=== PATIENT | male | born 1965 | race Caucasian/White ===

== ENCOUNTER 2017-06-26 18:02 | Emergency (ER) | payer MEDICAID ==
[~2017-06-26] VITALS: Ht 165.1 cm; Wt 95.3 kg
[~2017-06-26 18:02] MED LIST: OMEP20TC12 PO; SUCR1TAB35 PO
[2017-06-26 18:22] VITALS: BP 183/108
[2017-06-26 18:54] LABS: BASOPHILS # (AUTO) 0.4 K/uL (0.00-0.22); EOSINOPHILS # (AUTO) 0.2 K/uL (0-0.4); EOSINOPHILS % (AUTO) 1.4 % (0.0-4.0); LYMPHOCYTES # (AUTO) 2.8 K/uL (2.0-11.5)
[2017-06-26 18:57] LABS: ANION GAP 19.7 (8-16); CARBON DIOXIDE 20.3 mmol/L (21-32); CREATININE 1.1 mg/dL (0.7-1.3)
[2017-06-26 18:59] LABS: BASOPHILS % (AUTO) 3.5 % (0.0-2.0); HEMATOCRIT 38.6 % (36-52); HEMOGLOBIN 12.8 g/dL (12.0-18.0); LYMPHOCYTES % (AUTO) 22.7 % (20.5-51.1); MEAN CORPUSCULAR HEMOGLOBIN 32 pg (27-31); MEAN CORPUSCULAR HGB CONC 33 g/dL (33-37); MEAN CORPUSCULAR VOLUME 96 fL (80-94); MONOCYTES # (AUTO) 0.8 K/uL (0.8-1.0); MONOCYTES % (AUTO) 6.4 % (1.7-9.3); PLATELET COUNT (AUTO) 620 K/uL (140-450); RED BLOOD CELL COUNT(AUTO) 4.01 MIL/uL (4.20-6.10); RED CELL DISTRIBUTION WIDTH 13.1 % (11.6-13.7); WHITE BLOOD COUNT (AUTO) 12.2 K/uL (4.8-10.8)
[2017-06-26 19:00] LABS: PROTHROMBIN TIME 11.5 secs (10.8-13.4)
[2017-06-26 19:03] LABS: ALBUMIN 3.5 g/dL (3.4-5.0); TOTAL BILIRUBIN 0.2 mg/dL (0.0-1.0)
--- NOTE | 2017-06-26 19:20 | NUR ---
52 Y/O M W/C/O N/V/D SINCE THIS AM. PT STATES HE WAS DISCHARGED FROM [facility] YESTERDAY FOR SAME S/SX. PT STATES HE VOMITED BLOOD THIS AM X1. HX SEIZURE DISORER, HTN, CVA W/NO DEFICIT.PT ON MONITOR, BP 182/83, NORMAL SINUS RHYTHM,DENIES SOB OR CHEST PAIN. ER MD MADE AWARE.
[2017-06-26 19:30] LABS: APPEARANCE,URINE CLEAR (CLEAR); BILIRUBIN,URINE NEGATIVE (NEGATIVE); BLOOD, URINE TRACE-L (NEGATIVE); COLOR,URINE YELLOW (YELLOW); LEUKOCYTE ESTERASE ,URINE NEGATIVE (NEGATIVE); NITRITE, URINE NEGATIVE (NEGATIVE); UGLUCOSE NEGATIVE (NEGATIVE)
[2017-06-26 19:43] LABS: RBC,URINE 0-5 (RARE) /HPF (0-5)
[2017-06-26 19:44] LABS: WBC,URINE 0-5 (RARE) /HPF (0-5)
--- NOTE | 2017-06-26 19:52 | NUR ---
Dr. Arnett evaluating patient at bedside.
[2017-06-26] MEDS ORDERED: DICYCLOMINE 20 MG/2 ML VIAL IM ONE (20:00)
[2017-06-26] MEDS ORDERED: ONDANSETRON 4 MG ODT PO ONE (20:00)
--- NOTE | 2017-06-26 20:55 | NUR ---
PT RETURN FROM CT
[2017-06-26] MEDS ORDERED: HYDROcodone/APAP 5/325 MG 1 TAB TAB PO ONE (21:30)
--- NOTE | 2017-06-26 21:30 | NUR ---
PT RESTING IN BED, AWATING FOR RESULTS. NO S/S OF DISTRESS NOTED AT THE MOMENT.
[2017-06-26] MEDS ORDERED: POTASSIUM CHLORIDE 10 MEQ TABER PO ONE (21:35)
[2017-06-26 22:16] VITALS: BP 117/76
--- NOTE | 2017-06-26 22:16 | NUR ---
Patient discharged with v/s stable. Written and verbal after care instructions given and explained. Patient alert, oriented and verbalized understanding of instructions. Ambulatory with steady gait. All questions addressed prior to discharge. ID band removed. Patient advised to follow up with PMD TOMORROW. Rx of BENTYL given. Patient educated on indication of medication including possible reaction and side effects. Opportunity to ask questions provided and answered.
== END 2017-06-26 22:16 | disposition home or self-care (01) ==
LOC: MED 18:02
DX: R10.32 Left lower quadrant pain (principal); R11.2 Nausea with vomiting, unspecified; R19.7 Diarrhea, unspecified; K21.9 Gastro-esophageal reflux disease without esophagitis; I10 Essential (primary) hypertension; F17.210 Nicotine dependence, cigarettes, uncomplicated; Z86.73 Personal history of transient ischemic attack (TIA), and cerebral infarction without residual deficits; Z90.49 Acquired absence of other specified parts of digestive tract; Z79.899 Other long term (current) drug therapy; Z88.8 Allergy status to other drugs, medicaments and biological substances
CPT/HCPCS: 36415; 74176; 80053; 81001; 82150; 83690; 85025; 85610; 85730; 96372; 99285; J0500; S0119

== ENCOUNTER 2017-11-14 18:06 | Inpatient (IN) | payer OTHER, MEDICAID ==
[~2017-11-14] VITALS: Ht 167.6 cm; Wt 99.3 kg
[~2017-11-14 18:06] MED LIST changes: +ASPI81CT89 PO; +DIVA500T1 PO; +GABA400C PO; +LISI40TA4 PO; +MECL-272 PO; +METO50TE2 PO; +ORE25 PO; +SERT100T PO; +[UNRECOGNIZED DRUG - CODE] NS; +[UNRECOGNIZED DRUG - CODE] PO
--- NOTE | 2017-11-14 18:21 | NUR ---
PT TAKEN TO BED 12.
[2017-11-14 18:25] VITALS: BP 158/78
[2017-11-14] MEDS ORDERED: ALBUTEROL 0.083% 2.5 MG/3 ML NEBU INH ONE ×2 (18:25→19:35)
[2017-11-14] MEDS ORDERED: IPRATROPIUM 0.02% 0.5 MG/2.5 ML NEBU INH ONE (18:25)
--- NOTE | 2017-11-14 18:45 | NUR ---
PT PRESENTS TO ER WITH INTERMITTENT GRADUAL ONSET SOB X 3 DAYS WORSENING THIS AM. PT REPORTS INCREASED SOB WITH MINIMAL EXERTION. ALSO, C/O CRUSHING RT ANTERIOR CHEST PAIN, NON RADIATING. DENIES ANY NUMBNESS/TINGLING. NO FEVERS/CHILLS. SKIN W/D/I. PT TACHYPNIC WITH LABORED BREATHING, NASAL FLARING NOTED. LS-WHEEZES YANETH, ON O2-2L VIA NC @96%. RT CALLED AND ER MD EXAM AT BEDSIDE.
--- NOTE | 2017-11-14 19:00 | NUR ---
RECEIVED REPORT FROM SRINIVASA STONER. TRANSFER OF CARE AT THIS TIME.
[2017-11-14] MEDS ORDERED: KETOROLAC 30 MG/ML VIAL IVP ONE (19:35)
[2017-11-14] MEDS ORDERED: ALBUTEROL SULFATE/IPRATROPIU 3 ML SOL IH ONE (19:35)
[2017-11-14 19:54] LABS: BASOPHILS # (AUTO) 0.2 K/uL (0.00-0.22); BASOPHILS % (AUTO) 2.5 % (0.0-2.0); EOSINOPHILS # (AUTO) 0.4 K/uL (0-0.4); HEMATOCRIT 38.8 % (36-52); HEMOGLOBIN 13.1 g/dL (12.0-18.0); LYMPHOCYTES # (AUTO) 1.8 K/uL (2.0-11.5); MEAN CORPUSCULAR HEMOGLOBIN 30 pg (27-31); MEAN CORPUSCULAR HGB CONC 34 g/dL (33-37); MEAN CORPUSCULAR VOLUME 90 fL (80-94); MONOCYTES # (AUTO) 0.9 K/uL (0.8-1.0); MONOCYTES % (AUTO) 13.7 % (1.7-9.3); NEUTROPHILS # (AUTO) 3.1 K/uL (1.8-7.7); NEUTROPHILS % (AUTO) 48.8 % (42.2-75.2); PLATELET COUNT (AUTO) 205 K/uL (140-450); RED BLOOD CELL COUNT(AUTO) 4.32 MIL/uL (4.20-6.10); RED CELL DISTRIBUTION WIDTH 14.1 % (11.6-13.7); WHITE BLOOD COUNT (AUTO) 6.4 K/uL (4.8-10.8)
[2017-11-14 20:10] LABS: ANION GAP 15.2 (8-16); POTASSIUM 4.2 mmol/L (3.5-5.1); TOTAL BILIRUBIN 0.2 mg/dL (0.0-1.0)
[2017-11-14] MEDS ORDERED: KEP500 PO (20:23)
[2017-11-14] MEDS ORDERED: methylPREDNISolone SS 125 MG/2 ML VIAL IVP ONE (20:35)
--- NOTE | 2017-11-14 21:26 | NUR ---
Patient will be admitted to care of DR. MESSINA. Admited to TELE. Will go to room 106A. Belongings list completed. Report to ILEANA STONER.
--- NOTE | 2017-11-14 21:35 | NUR ---
RECEIVED REPORT FROM DAY SHIFT NURSE. PT IS A/OX4, WITH RESIDUAL LEFT SIDED WEAKNESS FROM HX OF CVA. ON 2L O2 VIA NASAL CANNULA. 22G IV TO RIGHT FOREARM, SALINE LOCKED. PT AMBULATES WITH CANE. UPDATED BOARD. MRSA SWAB OBTAINED AND SENT TO LAB. VITAL SIGNS WITHIN NORMAL LIMITS. PT IN STABLE CONDITION, NO SIGNS OF DISTRESS NOTED. BED IN LOWEST POSITION, CALL LIGHT WITHIN REACH. WILL CONTINUE TO MONITOR.
[2017-11-14 21:45] VITALS: BP 135/88
--- NOTE | 2017-11-14 22:13 | NUR ---
PAGED DR Ilia MESSINA FOR ORDERS FOR PT. WILL AWAIT CALL.
--- NOTE | 2017-11-14 22:46 | NUR ---
PAGED DR Luis MESSINA AGAIN.
--- NOTE | 2017-11-14 23:20 | NUR ---
TRIED TO PAGE DR MESSINA AGAIN. EXPLAINED TO MAINFRAME SYSTEMS PROGRAMMER THAT THIS IS THE THIRD TIME PAGING DR Ilia MESSINA, AND HE STILL HAS NOT CALLED BACK, SO MAINFRAME SYSTEMS PROGRAMMER GOT A HOLD OF DR Ilia MESSINA AND PUT HIM ON THE LINE. TOLD THAT THERE ARE NO ORDERS FOR PT AND PT IS COMPLAINING OF PAIN. DR MESSINA SAID HE WOULD PT IN ORDERS NOW.
[2017-11-14] MEDS ORDERED: ACETAMINOPHEN 325 MG TAB PO PRN (23:50)
[2017-11-15] VITALS: BP 152/94
[2017-11-15] MEDS: HYDROcodone/APAP 5/325 MG 1 TAB TAB PO PRN ×3 (00:11→23:39)
--- NOTE | 2017-11-15 02:25 | NUR ---
PT HR ON MONITOR 44, PT SLEEPING, BUT AROUSABLE. VITAL SIGNS: BP 148/94, HR 58, SPO2 92% ON ROOM AIR, RR 20.
[2017-11-15 04:00] VITALS: BP 149/80
--- NOTE | 2017-11-15 04:00 | NUR ---
SLIGHTLY HYPERTENSIVE (149/80), OTHERWISE VITAL SIGNS WITHIN NORMAL LIMITS. PT IN STABLE CONDITION, NO SIGNS OF DISTRESS NOTED. BED IN LOWEST POSITION, CALL LIGHT WITHIN REACH. WILL CONTINUE TO MONITOR.
--- NOTE | 2017-11-15 05:40 | NUR ---
ADMINISTERED PAIN MEDICATION NORCO FOR PT COMPLAINT OF CHEST/RIBS PAIN, PT TOLERATED WELL. PT IN STABLE CONDITION, NO SIGNS OF DISTRESS NOTED. BED IN LOWEST POSITION, CALL LIGHT WITHIN REACH. WILL CONTINUE TO MONITOR.
--- NOTE | 2017-11-15 07:22 | NUR ---
ENDORSED PT TO DAY SHIFT RN IN STABLE CONDITION FOR CONTINUITY OF CARE.
--- NOTE | 2017-11-15 07:23 | NUR ---
RECEIVED REPORT FROM MEDICAL CLAIMS REPRESENTATIVE NURSE ILEANA AT BEDSIDE FOR CONTINUITY OF CARE. PT IS AWAKE AND AAOX4. INTRODUCED SELF AND UPDATED BOARD. PT SITTING UP IN BED WATCHING TV AND EATING BREAKFAST. COMPLAINED OF PAIN ON RIGHT SIDE AND STATED THAT IT HURTS FROM COUGH. O2 SAT 94% ON O2 NC 2L. LUNG SOUNDS CLEAR. SKIN WARM AND DRY. NO SIGNS OF DISTRESS. BED IN LOW POSITION, WHEELS LOCKED, CALL LIGHT WITHIN REACH. WILL CONTINUE TO MONITOR.
[2017-11-15 08:00] VITALS: BP 127/90
[2017-11-15] MEDS: SUCRALFATE 1 GM TAB PO SCH ×4 (08:34→20:40)
[2017-11-15] MEDS: HYDROCHLOROTHIAZIDE 25 MG TAB PO SCH (08:34)
[2017-11-15] MEDS: MECLIZINE 25 MG TAB PO SCH ×3 (08:35→17:09)
[2017-11-15] MEDS: ASPIRIN 81 MG TAB.CHEW PO SCH (08:35)
[2017-11-15] MEDS ORDERED: GABAPENTIN 100 MG CAP PO SCH (09:00)
[2017-11-15] MEDS ORDERED: DIVALPROEX 500 MG TABER PO SCH (09:00)
--- NOTE | 2017-11-15 09:01 | NUR ---
PATIENT HAS BEEN SCREENED AND CATEGORIZED MODERATE NUTRITION RISK. PATIENT WILL BE SEEN WITHIN 3-5 DAYS OF ADMISSION. 11/16/17-11/18/[address]
[2017-11-15] MEDS: DEXT 5% /NACL 0.9% 1,000 ML IV SCH ×3 (09:45→17:09)
[2017-11-15] MEDS ORDERED: ALUMINUM HYD/MAG/SIMETHICONE 30 ML UDC PO PRN (10:05)
[2017-11-15] MEDS ORDERED: ONDANSETRON 4 MG/2 ML VIAL IVP PRN (10:05)
[2017-11-15] MEDS ORDERED: HYDROcodone/APAP 5/325 MG 1 TAB TAB PO PRN (10:05)
[2017-11-15] MEDS ORDERED: LORazepam 1 MG TAB PO PRN (10:05)
[2017-11-15] MEDS ORDERED: ACETAMINOPHEN 325 MG TAB PO PRN (10:05)
[2017-11-15] MEDS ORDERED: MORPHINE SULFATE 2 MG/ML SYR IVP PRN (10:05)
[2017-11-15] MEDS ORDERED: ZOLPIDEM 5 MG TAB PO PRN (10:05)
[2017-11-15 10:34] LABS: CREATINE KINASE MB 2.2 ng/mL (0-3.6)
--- NOTE | 2017-11-15 10:46 | NUR ---
PER CM PT TAKES PSYCHOTROPIC MEDS HE HAS NOT BEEN TAKING, BUT PT DOES NOT KNOW THE NAME, PT'S NURSE AT [facility] CALLED [phone], T[facility] IS OUT OF THE OFFICE IN THE FIELD SO SHE GAVE ME NUMBER FOR HER SWEAT BAND SEPARATOR K[facility] [phone] FOR LIST OF PT'S MEDICATION, LEFT MESSAGE ON VOICE MAIL FOR KIA TO CALL US BACK WITH MEDICATION LIST. WILL FOLLOW UP.
[2017-11-15] MEDS: MORPHINE SULFATE 2 MG/ML SYR IVP PRN ×3 (11:15→19:37)
--- NOTE | 2017-11-15 11:15 | NUR ---
PT COMPLAINED OF CHEST PAIN 06/17 AND STATED [facility] IS NOT WORKING. ADMINISTERED MORPHINE IVP FOR PAIN. PT TOLERATED WELL. LYING IN BED GETTING ECHO DONE WITH TECH. NO COMPLAINTS AT THIS TIME. WILL CONTINUE TO MONITOR.
[2017-11-15 12:00] VITALS: BP 121/92
--- NOTE | 2017-11-15 12:14 | NUR ---
SPOKE WITH [facility] [phone], HOME MEDICATION VERIFIED, PER KIA, PT TAKES FOLLOWING MEDS AT HOME: KEPPRA 750MG PO BID DEPAKOTE ER 500MG PO BID ASPIRIN 81MG PO QD LASIX 40MG PO QD LISINOPRIL 20MG PO QD PANTOPRAZOL 40MG PO QD INDERAL 20MG PO TID FLOMAX 0.4MG PO CARAFATE 1MG PO QID THORAZINE 25MG PO QAM, 150MG PO HS NEURONTIN 300MG PO BID, 900MG PO HS ZOLOFT 150MG PO QD WILL NOTIFY Ilia ADAMSON
[2017-11-15] MEDS: GABAPENTIN 300 MG CAP PO SCH (14:54)
--- NOTE | 2017-11-15 15:00 | NUR ---
CHECKED ON PT IN ROOM. PT GOT UP TO USE RESTROOM AND BRUSH TEETH. GAVE DENTURE CUP FOR UPPER AND LOWER DENTURES. NO OTHERS COMPLAINTS AT THIS TIME. CALL LIGHT WITHIN REACH. WILL CONTINUE TO MONITOR.
[2017-11-15 16:00] VITALS: BP 145/82
--- NOTE | 2017-11-15 17:15 | NUR ---
PT STATED HE WAS FEELING ANXIOUS AND "A LITTLE SHAKES." PT REQUESTED ATIVAN FOR ANXIETY. ADMINISTERED ATIVAN PO. PT TOLERATED WELL. NO SIGNS OF DISTRESS. CALL LIGHT WITHIN REACH. WILL CONTINUE TO MONITOR.
[2017-11-15] MEDS ORDERED: ALBUTEROL SULFATE/IPRATROPIU 3 ML SOL IH PRN (18:20)
[2017-11-15] MEDS: LEVOFLOXACIN 500 MG/D5W PREMIX 100 ML IV SCH (18:30)
[2017-11-15] MEDS: ALBUTEROL SULFATE/IPRATROPIU 3 ML SOL IH SCH (18:49)
--- NOTE | 2017-11-15 19:13 | NUR ---
ENDORSED PT TO TRAVEL RN OR NURSE STAR AT BEDSIDE FOR CONTINUITY OF CARE. PT IN STABLE CONDITION.
--- NOTE | 2017-11-15 19:14 | NUR ---
RECEIVED HANDOFF REPORT FROM AM RN. PATIENT A&OX4. PATIENT STATES 9/10 PAIN. KALLI MEDICATE ORDERED. IV SITE PATENT AND INTACT. NO SIGNS OR SYMPTOMS OF ACUTE DISTRESS NOTED. SAFETY MEASURES ENSURED. CALL LIGHT WITHIN REACH. WILL CONTINUE TO MONITOR.
[2017-11-15 20:00] VITALS: BP 126/77
[2017-11-15] MEDS: DIVALPROEX 500 MG TABEC PO SCH (20:37)
[2017-11-15] MEDS: levETIRAcetam 500 MG TAB PO SCH (20:40)
[2017-11-15] MEDS ORDERED: GABAPENTIN 300 MG CAP PO SCH (21:00)
[2017-11-15] MEDS ORDERED: chlorproMAZINE 25 MG TAB PO SCH (21:00)
--- NOTE | 2017-11-15 23:40 | NUR ---
PATIENT STATES SOB. O2 IS 95 ON 2L O2 NC. RT NOTIFIED. NO SIGNS OR SYMPTOMS OF ACUTE DISTRESS NOTED. SAFETY MEASURES ENSURED. CALL LIGHT WITHIN REACH. WILL CONTINUE TO MONITOR.
[2017-11-16] VITALS: BP 130/86
--- NOTE | 2017-11-16 00:01 | NUR ---
RT IN TO SEE PATIENT.
[2017-11-16] MEDS: ALBUTEROL SULFATE/IPRATROPIU 3 ML SOL IH SCH ×4 (00:09→19:00)
[2017-11-16] MEDS: MORPHINE SULFATE 2 MG/ML SYR IVP PRN ×3 (01:33→12:22)
--- NOTE | 2017-11-16 02:45 | NUR ---
PATIENT RESTING IN BED. NO SIGNS OR SYMPTOMS OF DISTRESS NOTED. SAFETY MEASURES ENSURED. CALL LIGHT WITHIN REACH. WILL CONTINUE TO MONITOR.
[2017-11-16] MEDS: DEXT 5% /NACL 0.9% 1,000 ML IV SCH ×2 (02:47→15:11)
[2017-11-16 04:00] VITALS: BP 127/82
[2017-11-16] MEDS ORDERED: PANTOPRAZOLE 40 MG TABEC PO SCH (06:30)
[2017-11-16 06:40] LABS: BASOPHILS # (AUTO) 0.1 K/uL (0.00-0.22); BASOPHILS % (AUTO) 1.6 % (0.0-2.0); EOSINOPHILS # (AUTO) 0.1 K/uL (0-0.4); HEMATOCRIT 36.8 % (36-52); HEMOGLOBIN 12.4 g/dL (12.0-18.0); LYMPHOCYTES # (AUTO) 3.1 K/uL (2.0-11.5); LYMPHOCYTES % (AUTO) 36.7 % (20.5-51.1); MEAN CORPUSCULAR HEMOGLOBIN 30 pg (27-31); MEAN CORPUSCULAR HGB CONC 34 g/dL (33-37); MEAN CORPUSCULAR VOLUME 90 fL (80-94); MONOCYTES # (AUTO) 0.8 K/uL (0.8-1.0); MONOCYTES % (AUTO) 9.2 % (1.7-9.3); NEUTROPHILS # (AUTO) 4.4 K/uL (1.8-7.7); NEUTROPHILS % (AUTO) 51.5 % (42.2-75.2); PLATELET COUNT (AUTO) 237 K/uL (140-450); RED BLOOD CELL COUNT(AUTO) 4.09 MIL/uL (4.20-6.10); RED CELL DISTRIBUTION WIDTH 14.8 % (11.6-13.7); WHITE BLOOD COUNT (AUTO) 8.5 K/uL (4.8-10.8)
[2017-11-16 07:05] LABS: ALBUMIN 2.5 g/dL (3.4-5.0); ANION GAP 10.3 (8-16); CARBON DIOXIDE 28.8 mmol/L (21-32); CREATININE 1.1 mg/dL (0.7-1.3); MAGNESIUM 1.7 mg/dL (1.8-2.4); PHOSPHORUS 3.6 mg/dL (2.5-4.9); POTASSIUM 4.1 mmol/L (3.5-5.1); TOTAL BILIRUBIN 0.2 mg/dL (0.0-1.0)
--- NOTE | 2017-11-16 07:22 | NUR ---
ENDORSED PLAN OF CARE TO AM RN. PATIENT IN STABLE CONDITION
--- NOTE | 2017-11-16 07:23 | NUR ---
RECEIVED REPORT FROM PLASTER WHITTLER NURSE. PATIENT LYING IN BED SLEEPING, AROUSABLE BY VOICE. NO DISTRESS NOTED. DENIES ANY PAIN AT THIS TIME. RESPIRATIONS EVEN, UNLABORED, ON O2 2L/MIN VIA NC. AAOX4, CALM, COOPERATIVE, APPROPRIATE AFFECT, SKIN COLOR APPROPRIATE TO ETHNICITY, WARM TO TOUCH. SKIN IS INTACT. IV SITE INTACT, PATENT AND INFUSING IVF PER ORDERS. LUNGS WHEEZING THROUGHOUT ALL LOBES. ABDOMEN SOFT, NON-DISTENDED. REVIEWED PLAN OF CARE WITH PATIENT. PATIENT VERBALIZED UNDERSTANDING. SAFETY MEASURES IN PLACE, CALL LIGHT WITHIN REACH. WILL CONTINUE TO MONITOR.
[2017-11-16 08:00] VITALS: BP 134/90
[2017-11-16] MEDS: SUCRALFATE 1 GM TAB PO SCH ×3 (08:50→16:06)
[2017-11-16] MEDS: ASPIRIN 81 MG TAB.CHEW PO SCH (08:50)
[2017-11-16] MEDS: DIVALPROEX 500 MG TABEC PO SCH (08:50)
[2017-11-16] MEDS: HYDROCHLOROTHIAZIDE 25 MG TAB PO SCH (08:51)
[2017-11-16] MEDS: levETIRAcetam 500 MG TAB PO SCH (08:51)
[2017-11-16] MEDS: GABAPENTIN 300 MG CAP PO SCH ×2 (08:51→15:10)
[2017-11-16] MEDS: MECLIZINE 25 MG TAB PO SCH ×3 (08:52→16:07)
--- NOTE | 2017-11-16 08:56 | NUR ---
PATIENT LYING IN BED SLEEPING, AROUSABLE BY VOICE. NO DISTRESS NOTED. DENIES ANY PAIN AT THIS TIME. SCHEDULED MEDICATIONS DUE GIVEN. SAFETY MEASURES IN PLACE, CALL LIGHT WITHIN REACH. WILL CONTINUE TO MONITOR.
[2017-11-16] MEDS ORDERED: NON-FORMULARY ITEM (Lisinopril 40 MG) PO SCH (09:00)
[2017-11-16] MEDS ORDERED: DOCUSATE SODIUM 100 MG GELCAP PO SCH (09:00)
[2017-11-16] MEDS ORDERED: LISINOPRIL 20 MG TAB PO SCH (09:00)
[2017-11-16] MEDS ORDERED: SERTRALINE 50 MG TAB PO SCH (09:00)
[2017-11-16] MEDS ORDERED: NON-FORMULARY ITEM (Omeprazole (Omeprazole) 20 MG) PO SCH (09:00)
[2017-11-16] MEDS ORDERED: chlorproMAZINE 25 MG TAB PO SCH (09:00)
--- NOTE | 2017-11-16 10:53 | NUR ---
PATIENT LYING IN BED SLEEPING, AROUSABLE BY VOICE. NO DISTRESS NOTED. DENIES ANY PAIN AT THIS TIME. CONDITION UNCHANGED. WILL CONTINUE TO MONITOR.
[2017-11-16 11:16] LABS: CREATINE KINASE MB 1.4 ng/mL (0-3.6)
[2017-11-16 12:00] VITALS: BP 130/72
--- NOTE | 2017-11-16 12:29 | NUR ---
PATIENT SITTING IN BED WITH LUNCH TRAY IN FRONT. ORDERED DIFFERENT TRAY FOR PATIENT PATIENT DOES NOT EAT FISH. SCHEDULED MEDICATIONS DUE GIVEN. NO DISTRESS NOTED. C/O OF 8/10 CHEST PAIN WITH PRESSURE. MORPHINE GIVEN PER MD ORDERS. SAFETY MEASURES IN PLACE, CALL LIGHT WITHIN REACH. WILL CONTINUE TO MONITOR.
--- NOTE | 2017-11-16 13:02 | NUR ---
PT REFUSED HHN TX. PT WANTS TO EAT. NO SOB OR DISTRESS NOTED. TOOK HIS OXYGEN OFF AND DOESNT WANT TO PUT IT BACK ON FOR NOW . WILL CONTINUE TO MONITOR.
--- NOTE | 2017-11-16 14:58 | NUR ---
PATIENT LYING IN BED SLEEPING, AROUSABLE BY VOICE. NO DISTRESS NOTED. CONDITION UNCHANGED. WILL CONTINUE TO MONITOR.
[2017-11-16] MEDS ORDERED: MAG SULF 2000 MG/WATER PREMIX 50 ML IV SCH (15:53)
[2017-11-16 16:00] VITALS: BP 130/67
--- NOTE | 2017-11-16 16:00 | NUR ---
O2 SAT AT 92% ON ROOM AIR AT REST. WILL CONTINUE TO MONITOR.
[2017-11-16] MEDS: LEVOFLOXACIN 500 MG/D5W PREMIX 100 ML IV SCH (17:57)
--- NOTE | 2017-11-16 17:57 | NUR ---
PATIENT SITTING IN BED WATCHING TV WITH DINNER TRAY IN FRONT. NO DISTRESS NOTED. DENIES ANY PAIN. SCHEDULED ANTIBIOTIC MEDICATION GIVEN. SAFETY MEASURES IN PLACE, CALL LIGHT WITHIN REACH. WILL CONTINUE TO MONITOR.
[2017-11-16] MEDS ORDERED: ACET-9525 PO (18:12)
[2017-11-16] MEDS ORDERED: LEVO750T2 PO (18:12)
--- NOTE | 2017-11-16 18:50 | NUR ---
PATIENT SITTING IN BED WATCHING TV. NO DISTRESS NOTED. PATIENT TO BE DISCHARGED HOME TODAY. NOTIFIED FRIEND SOFIYA, ON ESTIMATED TIME THAT HE CAN COME TO TAKE PATIENT HOME. ESTIMATED TIME BY FRIEND IS AROUND 1929. DISCHARGE INSTRUCTIONS PROVIDED IN PREFERRED LANGUAGE OF YORUBA. FOLLOW-UP MD INSTRUCTIONS PROVIDED, NEW/CHANGED MEDICATIONS, DIET REGIMEN, AND PREVENTION/MANAGEMENT OF CHEST PAIN. ANSWERED ALL OF PATIENT'S QUESTIONS. NEW MEDICATION PRESCRIPTIONS WITH PATIENT. PATIENT VERBALIZED COMPLETE UNDERSTANDING. IV SITE REMOVED WITH MINIMAL BLOOD AND LUMEN COMPETENTLY INTACT. ID BANDS REMOVED. AWAITING FOR FRIEND TO COME AREA OPERATIONS MANAGER PATIENT AROUND 1929. WILL CONTINUE TO MONITOR.
--- NOTE | 2017-11-16 19:26 | NUR ---
GAVE REPORT TO GAS DERRICK OPERATOR NURSE FOR CONTINUITY OF CARE. PATIENT IN STABLE CONDITION. PATIENT AWAITING FOR FRIEND TO ARRIVE TO TAKE PATIENT HOME. GAS DERRICK OPERATOR NURSE TO FINISH DISCHARGING PATIENT.
--- NOTE | 2017-11-16 19:28 | NUR ---
RECEIVED HANDOFF REPORT FROM AM RN. PATIENT A&OX4. PATIENT DENIES PAIN. NO SIGNS OR SYMPTOMS OF ACUTE DISTRESS NOTED. PATIENT IS WAITING FOR FRIEND TO ARRIVE FOR RIDE HOME, PATIENT IS DISCHARGED. WILL CONTINUE TO MONITOR.
--- NOTE | 2017-11-16 19:45 | NUR ---
PATIENT IS OFF UNIT VIA WHEELCHAIR WITH FRIEND. PATIENT IN STABLE CONDITION.
== END 2017-11-16 19:45 | disposition home or self-care (01) | DRG 193 ==
LOC: MED 18:06 → MTU 20:54
PROVIDERS: ADMIT Internal Medicine Cardiovascular Disease; ATTEND Internal Medicine Cardiovascular Disease
DX: J18.9 Pneumonia, unspecified organism (principal); J96.00 Acute respiratory failure, unspecified whether with hypoxia or hypercapnia; I69.354 Hemiplegia and hemiparesis following cerebral infarction affecting left non-dominant side; E44.0 Moderate protein-calorie malnutrition; G40.909 Epilepsy, unspecified, not intractable, without status epilepticus; K21.9 Gastro-esophageal reflux disease without esophagitis; I10 Essential (primary) hypertension; F17.210 Nicotine dependence, cigarettes, uncomplicated; Z91.041 Radiographic dye allergy status; Z79.82 Long term (current) use of aspirin; Z90.49 Acquired absence of other specified parts of digestive tract; Z68.35 Body mass index [BMI] 35.0-35.9, adult
CPT/HCPCS: 36415; 71045; 80053; 82550; 82553; 83735; 83880; 84100; 84484; 85025; 85610; 85730; 87081; 93005; 94640; 96374; 96375; 99285; J1885; J1956; J2270; J2930; J3475; J7042; J7613; J7620; J7644; J8597; Q0092

== ENCOUNTER 2018-01-17 17:24 | Inpatient (IN) | payer OTHER, MEDICAID ==
[~2018-01-17] VITALS: Ht 167.6 cm; Wt 93.9 kg
[~2018-01-17 17:24] MED LIST changes: +ACET-9525 PO; +KEP500 PO; +LEVO750T2 PO
[2018-01-17 17:25] VITALS: BP 140/80
--- NOTE | 2018-01-17 17:40 | NUR ---
PT. BIB [facility], DUE TO HAVING A TONIC CLONIC SEIZURE [facility] IN [place], [place]. PT STATES , " MY BACK HURTS AND MY HEAD BECAUSE I FELL". PT. RATES PAIN AT 10/10 PAIN THAT IS NON RADIATING AND IS IN HIS LOWER BACK AND HEAD. PT C/O OF NAUSEA BUT NO VOMITING. PT. HAS A SMALL BRUISE ON HIS HEAD AND NO BRUISING NOTED ON HIS BACK. RR EVEN AND UNLABORED, LS: CLEAR, NOTIFIED ER MD . WILL CONTINUE TO MONITOR.
[2018-01-17] MEDS ORDERED: LORazepam 2 MG/ML VIAL IVP ONE (18:35)
--- NOTE | 2018-01-17 18:35 | NUR ---
PT. EXPERIENCED SEIZURE THAT LASTED 30 SECONDS, NOTIFIED.
[2018-01-17] MEDS ORDERED: LORazepam 2 MG/ML VIAL ONE (18:37)
--- NOTE | 2018-01-17 18:38 | NUR ---
PT. EXPERIENCED SEIZURE LASTING 20 SECONDS. NOTIFIED. BED IN LOWEST POSITION, SEIZURE PADS IN BED. GAVE LORAZEPAM 2MG IVP PER ER DOC ORDER. WILL CONTINUE TO MONITOR
[2018-01-17] MEDS ORDERED: KETOROLAC 30 MG/ML VIAL IVP ONE (18:50)
--- NOTE | 2018-01-17 18:55 | NUR ---
RESPITE COORDINATOR IN ROOM W/ PATIENT
[2018-01-17 19:00] LABS: BASOPHILS # (AUTO) 0.1 K/uL (0.00-0.22); BASOPHILS % (AUTO) 1.2 % (0.0-2.0); EOSINOPHILS # (AUTO) 0.3 K/uL (0-0.4); EOSINOPHILS % (AUTO) 2.9 % (0.0-4.0); HEMATOCRIT 42.2 % (36-52); HEMOGLOBIN 14.2 g/dL (12.0-18.0); LYMPHOCYTES % (AUTO) 27.3 % (20.5-51.1); MEAN CORPUSCULAR HEMOGLOBIN 30 pg (27-31); MEAN CORPUSCULAR HGB CONC 34 g/dL (33-37); MEAN CORPUSCULAR VOLUME 89.8 fL (80-94); MONOCYTES # (AUTO) 0.9 K/uL (0.8-1.0); MONOCYTES % (AUTO) 8.2 % (1.7-9.3); NEUTROPHILS # (AUTO) 6.7 K/uL (1.8-7.7); NEUTROPHILS % (AUTO) 60.4 % (42.2-75.2); PLATELET COUNT (AUTO) 430 K/uL (140-450); RED CELL DISTRIBUTION WIDTH 15.9 % (11.6-13.7); WHITE BLOOD COUNT (AUTO) 11.1 K/uL (4.8-10.8)
--- NOTE | 2018-01-17 19:09 | NUR ---
Pt report given to GEORGIANA HOLM . Transfer of care at this time.
[2018-01-17] MEDS ORDERED: NACL 0.9% IV SCH (19:10)
[2018-01-17] MEDS ORDERED: LEVETIRACETAM IV SCH (19:10)
--- NOTE | 2018-01-17 19:10 | NUR ---
RECEIVED REPORT FROM AM NURSE. PT RESTING COMFORTABLY IN BED, AOX4, PT UNABLE TO COLLECT URINE AT THIS TIME, WILL CONTINUE TO TRY. RECEIVED KEMINDYRA IVPB FROM PHARMACY, WILL ADMINISTER.
[2018-01-17 19:12] LABS: ANION GAP 16.9 (8-16); CHLORIDE 103 mmol/L (98-107); CREATININE 1.1 mg/dL (0.7-1.3); GFR ARICAN-AMERICAN 90 mL/min (>90); GLUCOSE 111 mg/dL (74-106); POTASSIUM 3.9 mmol/L (3.5-5.1); SODIUM SERUM 139 mmol/L (136-145); UREA NITROGEN, BLOOD 26 mg/dL (7-18)
[2018-01-17 19:18] LABS: ALBUMIN 3.2 g/dL (3.4-5.0); ASPARTATE AMINOTRANSFERASE 20 U/L (15-37); TOTAL BILIRUBIN 0.2 mg/dL (0.0-1.0)
--- NOTE | 2018-01-17 20:35 | NUR ---
PT ABLE TO COLLECT URINE AT THIS TIME, PLACED ON LAB COLLECTION BOX
[2018-01-17] MEDS ORDERED: levETIRAcetam 2,000 MG in NACL 0.9% 100 ML IV SCH (21:00)
[2018-01-17] MEDS ORDERED: levETIRAcetam 100 MG/ML VIAL IV ONE (21:05)
[2018-01-17 21:15] LABS: APPEARANCE,URINE CLEAR (CLEAR); BILIRUBIN,URINE NEGATIVE (NEGATIVE); BLOOD, URINE NEGATIVE (NEGATIVE); COLOR,URINE YELLOW (YELLOW); LEUKOCYTE ESTERASE ,URINE NEGATIVE (NEGATIVE); NITRITE, URINE NEGATIVE (NEGATIVE); PH,URINE 5.5 (5.0-9.0); UGLUCOSE NEGATIVE (NEGATIVE)
--- NOTE | 2018-01-17 22:15 | NUR ---
PT SLEEPING IN BED COMFORTABLY, VSS, RR EVEN AND UNLABORED. ALL NEEDS MET.
[2018-01-17 22:19] LABS: BARBITURATE, URINE NEG. ng/ml (NEG <=200); BENZODIAZEPINE, URINE NEG. ng/mL (NEG <=200); CANNABINOID, URINE NEG. ng/mL (NEG <=50); COCAINE, URINE NEG. ng/mL (NEG <=300); OPIATE, URINE NEG. ng/mL (NEG <=2000); PHENCYCLIDINE SCREEN,URINE NEG. ng/mL (NEG <=25)
[2018-01-17] MEDS ORDERED: HYDROcodone/APAP 5/325 MG 1 TAB TAB PO PRN ×2 (23:05→23:10)
[2018-01-17] MEDS ORDERED: LORazepam 2 MG/ML VIAL IVP PRN (23:10)
[2018-01-17] MEDS ORDERED: ONDANSETRON 4 MG/2 ML VIAL IVP PRN (23:10)
[2018-01-17] MEDS ORDERED: ACETAMINOPHEN 325 MG TAB PO PRN (23:10)
--- NOTE | 2018-01-17 23:43 | NUR ---
Patient will be admitted to care of Ilia MESSINA Admited to TELE. Will go to room 105A. Belongings list completed. Report to GEORGIANA VALENZUELA AT BEDSIDE.
[2018-01-17 23:45] VITALS: BP 145/89
--- NOTE | 2018-01-17 23:45 | NUR ---
PT ARIVED AT UNIT VIA GURNEY, PT AMBULATED TO BED, NO DISTRESS NOTED, REPORT RECEIVED FROM ER NURSE ALTA RN, PT STABLE, IV TO R HAND 20G SL PATENT INTACT, NOTED PT HAD A SMALL BRUISE TO THE HEAD, DUE TO S/P FALL R/T SEIZURE. PT V/S STABLE, PT STATED HAVING PAIN TO THE BACK /10, WILL MEDICATE WHEN AVAILABLE. PT RESTING ON BED, ORIENT PT TO ROOM AND CALL LIGHT, MRSA SWAB TAKEN, CALL LIGHT WITHIN REACH, WILL CONTINUE TO MONITOR.
[2018-01-18] MEDS ORDERED: MORPHINE SULFATE 4 MG/ML SYR ONE ×2 (00:03→05:31)
[2018-01-18] MEDS: MORPHINE SULFATE 2 MG/ML SYR IVP PRN ×2 (00:06→05:39)
--- NOTE | 2018-01-18 00:06 | NUR ---
PAIN MEDICATION GIVEN, PT TOLERATED WELL, NO DISTRESS NOTED, CALL LIGHT WITHIN REACH, WILL CONTINUE TO MONITOR.
--- NOTE | 2018-01-18 00:15 | NUR ---
CALLED PROCESS TRAINER MARYJANE REGARDING PT MEDICATION THAT IS DUE AT 0000 WAYNE-SYNEPHRINE, MEDICATION IS NOT AVAILABLE AT UNIT, PROCESS TRAINER STATED UNDERSTANDING AND WILL LOOK IF HE CAN PULL MEDICATION. AWAITING FOR MEDICATION.
[2018-01-18] MEDS ORDERED: PHENYLEPHRINE 1% 15 ML BTL NS ONE (00:54)
[2018-01-18] MEDS: PHENYLEPHRINE 1% 15 ML BTL NS SCH ×3 (01:00→12:12)
--- NOTE | 2018-01-18 01:00 | NUR ---
DUE MEDICATION ADMINISTERED, PT TOLERATED WELL, NO DISTRESS NOTED, CALL LIGHT WITHIN REACH, WILL CONTINUE TO MONITOR.
--- NOTE | 2018-01-18 03:10 | NUR ---
CHECK ON PT, PT SLEEPING, NO DISTRESS NOTED, CALL LIGHT WITHIN REACH, WILL CONTINUE TO MONITOR.
--- NOTE | 2018-01-18 05:39 | NUR ---
PT C/O PAIN, PAIN MEDICATION GIVEN, PT TOLERATED WELL, NO DISTRESS NOTED, CALL LIGHT WITHIN REACH, WILL CONTINUE TO MONITOR.
[2018-01-18 07:19] LABS: BASOPHILS # (AUTO) 0.1 K/uL (0.00-0.22); BASOPHILS % (AUTO) 0.7 % (0.0-2.0); EOSINOPHILS # (AUTO) 0.2 K/uL (0-0.4); EOSINOPHILS % (AUTO) 2.5 % (0.0-4.0); HEMATOCRIT 41.8 % (36-52); HEMOGLOBIN 14.2 g/dL (12.0-18.0); LYMPHOCYTES # (AUTO) 2.9 K/uL (2.0-11.5); LYMPHOCYTES % (AUTO) 29.7 % (20.5-51.1); MEAN CORPUSCULAR HEMOGLOBIN 31 pg (27-31); MEAN CORPUSCULAR HGB CONC 34 g/dL (33-37); MEAN CORPUSCULAR VOLUME 90.7 fL (80-94); MONOCYTES # (AUTO) 0.8 K/uL (0.8-1.0); MONOCYTES % (AUTO) 8.7 % (1.7-9.3); NEUTROPHILS # (AUTO) 5.6 K/uL (1.8-7.7); NEUTROPHILS % (AUTO) 58.4 % (42.2-75.2); PLATELET COUNT (AUTO) 419 K/uL (140-450); RED BLOOD CELL COUNT(AUTO) 4.61 MIL/uL (4.20-6.10); WHITE BLOOD COUNT (AUTO) 9.6 K/uL (4.8-10.8)
--- NOTE | 2018-01-18 07:30 | NUR ---
ENDORSED PLAN OF CARE TO DAY SHIFT NURSE ISIS RN, PT STABLE, NO DISTRESS NOTED, CALL LIGHT WITHIN REACH.
--- NOTE | 2018-01-18 07:30 | NUR ---
PATIENT RECEIVED AWAKE ALERT AND ORIENTED WITHOUT EVIDENCE OF DISTRESS. PATIENT C/O OF CONTINUES BACK PAIN AND WOULD LIKE MORPHINE, PATIENT GIVEN MORPHINE WITHIN THE TIME PRESCRIBED FRAME, PATIENT MADE AWARE AND AGREES TO TAKE NORCO INSTEAD. SIDE RAILS X2 PADDED R/T HX OF SEIZURES, BED IN LOW POSITION AND CALL LIGHT IN REACH
[2018-01-18 07:39] LABS: ALBUMIN 3.2 g/dL (3.4-5.0); ANION GAP 15.6 (8-16); CARBON DIOXIDE 25.1 mmol/L (21-32); CREATININE 1.4 mg/dL (0.7-1.3); POTASSIUM 4.7 mmol/L (3.5-5.1); TOTAL BILIRUBIN 0.3 mg/dL (0.0-1.0)
[2018-01-18 08:11] VITALS: BP 124/87
--- NOTE | 2018-01-18 08:20 | NUR ---
PATIENT GIVEN NORCO 5/325MG FOR PAIN TO LOWER BACK.
[2018-01-18] MEDS: GABAPENTIN 300 MG CAP PO SCH ×3 (08:37→17:03)
[2018-01-18] MEDS: SERTRALINE 50 MG TAB PO SCH (08:37)
[2018-01-18] MEDS: ASPIRIN 81 MG TAB.CHEW PO SCH (08:38)
[2018-01-18] MEDS: DIVALPROEX 500 MG TABER PO SCH ×2 (08:38→22:22)
[2018-01-18] MEDS: SUCRALFATE 1 GM TAB PO SCH ×4 (08:38→22:22)
[2018-01-18] MEDS: MECLIZINE 25 MG TAB PO SCH ×3 (08:39→17:04)
[2018-01-18] MEDS: PANTOPRAZOLE 40 MG TABEC PO SCH (08:39)
[2018-01-18] MEDS ORDERED: NON-FORMULARY ITEM (Omeprazole (Omeprazole) 20 MG) PO SCH (09:00)
[2018-01-18] MEDS ORDERED: HYDROCHLOROTHIAZIDE 25 MG TAB PO SCH (09:00)
[2018-01-18] MEDS ORDERED: LISINOPRIL 20 MG TAB PO SCH (09:00)
[2018-01-18] MEDS ORDERED: NON-FORMULARY ITEM (Lisinopril 40 MG) PO SCH (09:00)
[2018-01-18] MEDS: DEXT 5% / NACL 0.45% 1,000 ML IV SCH (10:10)
--- NOTE | 2018-01-18 11:29 | NUR ---
CM NOTE INITIAL REVIEW DONE
--- NOTE | 2018-01-18 12:55 | NUR ---
PATIENT VERY DROWSY AT THIS TIME, WILL CONTINUE TO MONITOR FOR INCREASED RESPONSIVENESS
--- NOTE | 2018-01-18 13:17 | NUR ---
01/18/18 RD INITIAL ASSESSMENT COMPLETED PLEASE REFER TO NUTRITION ASSESSMENT UNDER CARE ACTIVITY FOR ESTIMATED NUTRITIONAL NEEDS. 1. CONTINUE 2 GM NA DIET TOLERATED 2. PROVIDE NUTRITION EDUCATION IN REGARDS TO REDUCED SODIUM DIET. 3. RD TO FOLLOW-UP 3-5 DAYS, MODERATE RISK MEAGHAN TINOCO, TIMOTHY
--- NOTE | 2018-01-18 14:57 | NUR ---
PATIENT HAS BEEN SCREENED AND CATEGORIZED HIGH NUTRITION RISK. PATIENT WILL BE SEEN WITHIN 1-2 DAYS OF ADMISSION. 01/18/18 - 01/19/[address]
[2018-01-18] MEDS: MORPHINE SULFATE 4 MG/ML SYR IVP PRN ×2 (15:19→22:25)
--- NOTE | 2018-01-18 15:24 | NUR ---
PATIENT MUCH MORE ALERT AT THIS TIME, REQUESTED AND GIVEN MORPHINE FOR PAIN AT 05/17. WILL OBSERVE FOR SINCE OF DROWSINESS
--- NOTE | 2018-01-18 17:10 | NUR ---
PATIENT MORE AWAKE NOW. IV RESTARTED TO LEFT LOWER FOREARM USING #22G CATHETER. IV CONTINUES PER ORDER. SIDE RAILS REMAINS PADDED R/T SEIZURE, NO ACTIVITY SEEN THIS SHIFT
[2018-01-18 17:53] VITALS: BP 127/81
--- NOTE | 2018-01-18 19:25 | NUR ---
ENDORSED CARE OF PATIENT TO TOUCHER UP RN. PATIENT LYING QUIETLY IN BED WITHOUT EVIDENCE OF DISTRESS.
[2018-01-18 20:00] VITALS: BP 99/72
[2018-01-18] MEDS ORDERED: METOPROLOL SUCCINATE 50 MG TABER PO SCH (21:00)
--- NOTE | 2018-01-18 23:03 | NUR ---
RECEIVED PT FROM ARISTIDES RN PT IS AAOX4 AMBULATORY IV ON RT FA INFUSING WELL NOT DISTRESS NOTED AT THIS TIME IITIAL ASSESSMENT DONE
[2018-01-19] VITALS: BP 115/82
--- NOTE | 2018-01-19 01:14 | NUR ---
OPAL CHANGED PT VOIDING WELL ON URINAS NOT DISTRESS NOTED
[2018-01-19 04:00] VITALS: BP 119/63
[2018-01-19] MEDS: MORPHINE SULFATE 4 MG/ML SYR IVP PRN ×2 (04:02→08:45)
--- NOTE | 2018-01-19 04:28 | NUR ---
AFTER PAIN MEDIC GIVENPT SLEEPING WELL QUIET DENIES ANY PAIN
[2018-01-19] MEDS: DEXT 5% / NACL 0.45% 1,000 ML IV SCH (06:08)
--- NOTE | 2018-01-19 06:14 | NUR ---
PT REMAIN STABLE AT THIS TIME SLEEPING WELL NOT DISTRESS NOTED IV ON RT FA INFUSING WELL
--- NOTE | 2018-01-19 07:10 | NUR ---
RECEIVED REPORT AT BEDSIDE FOR CONTINUITY OF CARE FROM SHOT PEEN OPERATOR NURSE. PATIENT STABLE WITH D51/2NS @50ML/HR TO RIGHT HAND 20G. PATIENT STABLE WITH PADDED SIDE RAILS FOR SEIZURE PRECAUTIONS. PATIENT ALSO ON FALL PRECAUTIONS D/T SEIZURES.
--- NOTE | 2018-01-19 08:00 | NUR ---
INITIAL ASSESSMENT PERFORMED. PATIENT ALERT AND ABLE TO VERBALIZE NEEDS.NO ACUTE DISTRESS NOTED. NO SOB. LUNG SOUNDS CLEAR. BOWEL SOUNDS ACTIVE STATED LAST BM WAS 01/17/18. USES URINAL AT BEDSIDE. PATIENT WITH SEIZURE PRECAUTIONS IMPLEMENTED . PADDED SIDE RAILS IN PLACE. PATIENT ALSO ON FALL PRECAUTIONS. PATIENT WITH D51/2NS @50ML/HR TO RIGHT HAND 20G. NO ACTIVE SEIZURES THIS AM. PATIENT REPORTED THAT HE HAS AN AURA BEFORE A SEIZURE OCCURS. DENIES AURA AT THIS TIME. PLAN OF CARE DISCUSSED WITH PATIENT AT BEDSIDE. SKIN INTACT. REORIENTED TO ROOM. CALL LIGHT WITHIN REACH. WILL CONT TO MONITOR.
[2018-01-19] MEDS: GABAPENTIN 300 MG CAP PO SCH ×2 (08:31→13:06)
[2018-01-19] MEDS: DIVALPROEX 500 MG TABER PO SCH (08:31)
[2018-01-19] MEDS: SERTRALINE 50 MG TAB PO SCH (08:31)
[2018-01-19] MEDS: PANTOPRAZOLE 40 MG TABEC PO SCH (08:31)
[2018-01-19] MEDS: MECLIZINE 25 MG TAB PO SCH (08:32)
[2018-01-19] MEDS: SUCRALFATE 1 GM TAB PO SCH (08:32)
[2018-01-19] MEDS: ASPIRIN 81 MG TAB.CHEW PO SCH (08:32)
[2018-01-19 08:46] LABS: BASOPHILS # (AUTO) 0.1 K/uL (0.00-0.22); BASOPHILS % (AUTO) 1.1 % (0.0-2.0); EOSINOPHILS # (AUTO) 0.2 K/uL (0-0.4); EOSINOPHILS % (AUTO) 2.6 % (0.0-4.0); HEMOGLOBIN 14.2 g/dL (12.0-18.0); LYMPHOCYTES # (AUTO) 2.3 K/uL (2.0-11.5); LYMPHOCYTES % (AUTO) 30.9 % (20.5-51.1); MEAN CORPUSCULAR HEMOGLOBIN 31 pg (27-31); MEAN CORPUSCULAR HGB CONC 34 g/dL (33-37); MEAN CORPUSCULAR VOLUME 90.9 fL (80-94); MONOCYTES # (AUTO) 0.5 K/uL (0.8-1.0); MONOCYTES % (AUTO) 6.3 % (1.7-9.3); NEUTROPHILS # (AUTO) 4.5 K/uL (1.8-7.7); NEUTROPHILS % (AUTO) 59.1 % (42.2-75.2); PLATELET COUNT (AUTO) 401 K/uL (140-450); RED BLOOD CELL COUNT(AUTO) 4.62 MIL/uL (4.20-6.10); RED CELL DISTRIBUTION WIDTH 15.7 % (11.6-13.7); WHITE BLOOD COUNT (AUTO) 7.6 K/uL (4.8-10.8)
[2018-01-19] MEDS ORDERED: HYDROCHLOROTHIAZIDE 25 MG TAB PO SCH (09:00)
[2018-01-19 09:04] LABS: ANION GAP 11.3 (8-16); CARBON DIOXIDE 28.2 mmol/L (21-32); CREATININE 1.1 mg/dL (0.7-1.3); POTASSIUM 4.5 mmol/L (3.5-5.1)
[2018-01-19 09:27] LABS: MAGNESIUM 1.8 mg/dL (1.8-2.4); PHOSPHORUS 3.1 mg/dL (2.5-4.9)
--- NOTE | 2018-01-19 10:00 | NUR ---
DR HUNG IN TO SEE PATIENT FOR ELEVATED LIVER FUNCTION TESTS. DR HUNG WITH NEW ORDERS FOR HEPATITIS B AND C LABS.
--- NOTE | 2018-01-19 11:30 | NUR ---
PATIENT WITH DISCHARGE ORDER CALLED AND SPOKE TO SOFIYA THE OIL BURNER INSTALLER FROM [facility] AND STATED HE WOULD GET TO HOSPITAL SOON HE COULD HE WAS COMING FROM [place]. PATIENT AWARE OF DISCHARGE ORDERS AND STATED UNDERSTANDING AND AGREEMENT.
--- NOTE | 2018-01-19 13:30 | NUR ---
SOFIYA ARRIVED AT FACILITY. PATIENT GETTING DRESSED. PATIENT IV SITE REMOVED LUMEN INTACT. TOLERATED WELL. PATIENT ID BANDS REMOVED. DISCUSSED DISCHARGE INSTRUCTIONS WITH PATIENT . PATIENT AWARE AND IN AGREEMENT.ALL BELONGINGS WITH PATIENT. DISCUSSED MEDICATION INSTRUCTION ORDERED.WILL WHEEL PATIENT OUT TO FRONT LOBBY WHEN READY.
--- NOTE | 2018-01-19 13:45 | NUR ---
PATIENT WHEELED TO FRONT LOBBY WITHOUT DIFFICULTIES WITH ALL BELONGINGS IN POSESSION. SOFIYA WAITING IN LOBBY IN PRIVATE VEHICLE.
[2018-01-19] MEDS ORDERED: chlorproMAZINE 25 MG TAB PO SCH (21:00)
[2018-01-20 07:08] LABS: HEPATITIS B SURFACE ANTIGEN Negative (Negative)
== END 2018-01-19 13:45 | disposition home or self-care (01) | DRG 100 ==
LOC: MED 17:24 → MTU 23:02
PROVIDERS: ADMIT Preventive Medicine Preventive Medicine/Occupational Environmental Medicine; ATTEND Preventive Medicine Preventive Medicine/Occupational Environmental Medicine
DX: G40.409 Other generalized epilepsy and epileptic syndromes, not intractable, without status epilepticus (principal); N17.0 Acute kidney failure with tubular necrosis; E88.09 Other disorders of plasma-protein metabolism, not elsewhere classified; I48.91 Unspecified atrial fibrillation; D72.829 Elevated white blood cell count, unspecified; F15.10 Other stimulant abuse, uncomplicated; K21.9 Gastro-esophageal reflux disease without esophagitis; Z86.73 Personal history of transient ischemic attack (TIA), and cerebral infarction without residual deficits; F17.200 Nicotine dependence, unspecified, uncomplicated; Z91.013 Allergy to seafood; Z88.8 Allergy status to other drugs, medicaments and biological substances; Z91.018 Allergy to other foods; N18.9 Chronic kidney disease, unspecified; F10.10 Alcohol abuse, uncomplicated; I12.9 Hypertensive chronic kidney disease with stage 1 through stage 4 chronic kidney disease, or unspecified chronic kidney disease; M51.36 Other intervertebral disc degeneration, lumbar region; T39.395A Adverse effect of other nonsteroidal anti-inflammatory drugs [NSAID], initial encounter; R73.9 Hyperglycemia, unspecified; R74.0 Nonspecific elevation of levels of transaminase and lactic acid dehydrogenase [LDH]; Z91.041 Radiographic dye allergy status; Z79.82 Long term (current) use of aspirin; Z87.442 Personal history of urinary calculi; Z82.49 Family history of ischemic heart disease and other diseases of the circulatory system; Z60.2 Problems related to living alone; Z91.02 Food additives allergy status
CPT/HCPCS: 36415; 70450; 71045; 72100; 76770; 80048; 80053; 80305; 81003; 83735; 84100; 85025; 86803; 87081; 87340; 96365; 96366; 96375; 99285; G0482; J1885; J1953; J2060; J2270; J7030; J8597; Q0092

== ENCOUNTER 2018-01-21 15:21 | Inpatient (IN) | payer OTHER, MEDICAID ==
[~2018-01-21] VITALS: Ht 167.6 cm; Wt 98.9 kg
[~2018-01-21 15:21] MED LIST changes: -LEVO750T2 PO; -LISI40TA4 PO
[2018-01-21 15:23] VITALS: BP 191/124
[2018-01-21] MEDS ORDERED: MORPHINE SULFATE 5 MG/ML VIAL IVP ONE ×2 (16:10→18:55)
[2018-01-21] MEDS ORDERED: NACL 0.9% 1,000 ML IV ONE ×2 (16:10→17:15)
[2018-01-21] MEDS ORDERED: ONDANSETRON 4 MG/2 ML VIAL IVP ONE (16:10)
[2018-01-21 16:14] LABS: BASOPHILS # (AUTO) 0.4 K/uL (0.00-0.22); EOSINOPHILS # (AUTO) 0.2 K/uL (0-0.4); HEMATOCRIT 44.7 % (36-52); HEMOGLOBIN 14.8 g/dL (12.0-18.0); LYMPHOCYTES # (AUTO) 2.3 K/uL (2.0-11.5); MEAN CORPUSCULAR HEMOGLOBIN 30 pg (27-31); MEAN CORPUSCULAR HGB CONC 33 g/dL (33-37); MEAN CORPUSCULAR VOLUME 89.2 fL (80-94); NEUTROPHILS # (AUTO) 5.4 K/uL (1.8-7.7); PLATELET COUNT (AUTO) 444 K/uL (140-450); RED BLOOD CELL COUNT(AUTO) 5.01 MIL/uL (4.20-6.10); RED CELL DISTRIBUTION WIDTH 14.8 % (11.6-13.7); WHITE BLOOD COUNT (AUTO) 9.3 K/uL (4.8-10.8)
[2018-01-21] MEDS ORDERED: LORazepam 2 MG/ML VIAL ONE (16:45)
[2018-01-21] MEDS ORDERED: LORazepam 2 MG/ML VIAL IVP ONE (16:45)
[2018-01-21 16:46] LABS: ALBUMIN 3.5 g/dL (3.4-5.0); ANION GAP 16.4 (8-16); CARBON DIOXIDE 25.9 mmol/L (21-32); POTASSIUM 4.3 mmol/L (3.5-5.1); TOTAL BILIRUBIN 0.3 mg/dL (0.0-1.0)
[2018-01-21 17:12] LABS: PROTHROMBIN TIME 10.6 secs (10.8-13.4)
[2018-01-21] MEDS ORDERED: PIPERACILLIN/TAZOBACTAM 3.375 GM in DEXTROSE 5% 50 ML IV ONE (17:15)
[2018-01-21] MEDS ORDERED: PIPERACILLIN/TAZOBACTAM 3.375 GM VIAL IV ONE ×2 (17:26→21:45)
[2018-01-21] MEDS ORDERED: diphenhydrAMINE 50 MG/ML VIAL IVP ONE (18:55)
[2018-01-21 20:00] VITALS: BP 154/90
[2018-01-21] MEDS ORDERED: MORPHINE SULFATE 2 MG/ML SYR IVP PRN (20:40)
[2018-01-21] MEDS ORDERED: ONDANSETRON 4 MG/2 ML VIAL IVP PRN (20:40)
[2018-01-21] MEDS ORDERED: LORazepam 2 MG/ML VIAL IVP PRN (20:40)
[2018-01-21] MEDS: DEXT 5% /NACL 0.9% 1,000 ML IV SCH (21:14)
[2018-01-21] MEDS: FAMOTIDINE 20 MG/2 ML VIAL IV SCH (21:24)
[2018-01-21] MEDS: PIPERACILLIN/TAZOBACTAM 3.375 GM in DEXTROSE 5% 50 ML IV SCH (21:56)
[2018-01-22] MEDS: MORPHINE SULFATE 4 MG/ML SYR IVP PRN ×6 (01:10→20:29)
[2018-01-22] MEDS ORDERED: PIPERACILLIN/TAZOBACTAM 3.375 GM VIAL IV ONE (04:51)
[2018-01-22] MEDS: PIPERACILLIN/TAZOBACTAM 3.375 GM in DEXTROSE 5% 50 ML IV SCH (05:21)
[2018-01-22] MEDS: DEXT 5% /NACL 0.9% 1,000 ML IV SCH ×2 (06:40→13:30)
[2018-01-22 07:32] LABS: BASOPHILS # (AUTO) 0.3 K/uL (0.00-0.22); BASOPHILS % (AUTO) 4.1 % (0.0-2.0); EOSINOPHILS # (AUTO) 0.2 K/uL (0-0.4); EOSINOPHILS % (AUTO) 2.9 % (0.0-4.0); HEMATOCRIT 38.4 % (36-52); LYMPHOCYTES # (AUTO) 2.3 K/uL (2.0-11.5); LYMPHOCYTES % (AUTO) 30.3 % (20.5-51.1); MEAN CORPUSCULAR HEMOGLOBIN 31 pg (27-31); MEAN CORPUSCULAR HGB CONC 34 g/dL (33-37); MONOCYTES # (AUTO) 0.8 K/uL (0.8-1.0); MONOCYTES % (AUTO) 10.6 % (1.7-9.3); NEUTROPHILS # (AUTO) 3.9 K/uL (1.8-7.7); NEUTROPHILS % (AUTO) 52.1 % (42.2-75.2); PLATELET COUNT (AUTO) 340 K/uL (140-450); RED BLOOD CELL COUNT(AUTO) 4.22 MIL/uL (4.20-6.10); RED CELL DISTRIBUTION WIDTH 14.3 % (11.6-13.7); WHITE BLOOD COUNT (AUTO) 7.5 K/uL (4.8-10.8)
[2018-01-22 07:34] LABS: ANION GAP 12.9 (8-16); CARBON DIOXIDE 26.2 mmol/L (21-32); POTASSIUM 4.1 mmol/L (3.5-5.1)
[2018-01-22 08:00] VITALS: BP 165/95
[2018-01-22] MEDS ORDERED: GABAPENTIN 100 MG CAP PO SCH (09:00)
[2018-01-22] MEDS: DIVALPROEX 500 MG TABEC PO SCH ×2 (09:00→20:28)
[2018-01-22] MEDS: levETIRAcetam 500 MG TAB PO SCH ×2 (09:00→20:28)
[2018-01-22] MEDS ORDERED: BUPIVACAINE-MPF 0.25% 30 ML VIAL INJ ONE (09:43)
[2018-01-22] MEDS ORDERED: GABAPENTIN 600 MG, GABAPENTIN 200 MG PO SCH ×2 (09:50)
[2018-01-22] MEDS ORDERED: ROCURONIUM 50 MG/5 ML VIAL IV ONE (10:00)
[2018-01-22] MEDS ORDERED: KETOROLAC 60 MG/2 ML VIAL IM ONE (10:00)
[2018-01-22] MEDS ORDERED: ONDANSETRON 4 MG/2 ML VIAL ONE (10:00)
[2018-01-22] MEDS ORDERED: PROPOFOL 200 MG/20 ML VIAL IV ONE (10:00)
[2018-01-22] MEDS ORDERED: SUCCINYLCHOLINE CHLORIDE 200 MG/10 ML VIAL IVP ONE (10:00)
[2018-01-22] MEDS ORDERED: DESFLURANE 240 ML BTL INH ONE (10:00)
[2018-01-22] MEDS ORDERED: NEOSTIGMINE 1:1000 10 MG/10 ML VIAL ONE (10:00)
[2018-01-22] MEDS ORDERED: GLYCOPYRROLATE 0.2 MG/ML VIAL ONE (10:00)
[2018-01-22] MEDS ORDERED: DEXAMETHASONE 4 MG/ML VIAL ONE (10:00)
[2018-01-22] MEDS ORDERED: MORPHINE SULFATE 4 MG/ML SYR ONE ×2 (10:05→11:44)
[2018-01-22] MEDS ORDERED: fentaNYL 0.05 MG/ML VIAL ONE (10:05)
[2018-01-22] MEDS ORDERED: MIDAZOLAM 2 MG/2 ML VIAL ONE (10:05)
[2018-01-22] MEDS ORDERED: MIDAZOLAM 2 MG/2 ML VIAL IV ONE (10:55)
[2018-01-22] MEDS ORDERED: MORPHINE SULFATE 4 MG/ML SYR IVP PRN ×2 (10:55)
[2018-01-22 12:15] VITALS: BP 152/99
[2018-01-22] MEDS: PIPER/TAZO 3.375GM/D5W PREMIX 50 ML IV SCH ×2 (13:21→20:28)
[2018-01-22] MEDS ORDERED: DIVALPROEX 500 MG TABEC PO SCH (13:21)
[2018-01-22] MEDS ORDERED: levETIRAcetam 500 MG TAB PO SCH (13:22)
[2018-01-22] MEDS: GABAPENTIN 600 MG, GABAPENTIN 200 MG PO SCH ×4 (13:34→16:52)
[2018-01-22 16:00] VITALS: BP 126/89
[2018-01-22 19:53] VITALS: BP 124/81
[2018-01-22] MEDS: FAMOTIDINE 20 MG/2 ML VIAL IV SCH (20:28)
[2018-01-22] MEDS: QUEtiapine FUMARATE 100 MG TAB PO SCH (21:25)
[2018-01-23] VITALS: BP 106/60
[2018-01-23 04:00] VITALS: BP 107/55
[2018-01-23] MEDS: DEXT 5% /NACL 0.9% 1,000 ML IV SCH ×3 (04:36→21:05)
[2018-01-23] MEDS: PIPER/TAZO 3.375GM/D5W PREMIX 50 ML IV SCH ×3 (04:38→21:04)
[2018-01-23 07:05] LABS: BASOPHILS # (AUTO) 0.2 K/uL (0.00-0.22); BASOPHILS % (AUTO) 1.3 % (0.0-2.0); EOSINOPHILS % (AUTO) 0.1 % (0.0-4.0); HEMATOCRIT 37.1 % (36-52); HEMOGLOBIN 12.5 g/dL (12.0-18.0); LYMPHOCYTES # (AUTO) 1.9 K/uL (2.0-11.5); LYMPHOCYTES % (AUTO) 14.3 % (20.5-51.1); MEAN CORPUSCULAR HEMOGLOBIN 31 pg (27-31); MEAN CORPUSCULAR HGB CONC 34 g/dL (33-37); MEAN CORPUSCULAR VOLUME 91.2 fL (80-94); MONOCYTES # (AUTO) 0.7 K/uL (0.8-1.0); MONOCYTES % (AUTO) 5.6 % (1.7-9.3); NEUTROPHILS # (AUTO) 10.5 K/uL (1.8-7.7); NEUTROPHILS % (AUTO) 78.7 % (42.2-75.2); PLATELET COUNT (AUTO) 334 K/uL (140-450); RED BLOOD CELL COUNT(AUTO) 4.07 MIL/uL (4.20-6.10); RED CELL DISTRIBUTION WIDTH 14.7 % (11.6-13.7); WHITE BLOOD COUNT (AUTO) 13.3 K/uL (4.8-10.8)
[2018-01-23 07:20] LABS: ALBUMIN 2.8 g/dL (3.4-5.0); ANION GAP 12.8 (8-16); CARBON DIOXIDE 26.4 mmol/L (21-32); CREATININE 1.2 mg/dL (0.7-1.3); POTASSIUM 4.2 mmol/L (3.5-5.1); TOTAL BILIRUBIN 0.2 mg/dL (0.0-1.0)
[2018-01-23 08:00] VITALS: BP 145/73
[2018-01-23] MEDS: DIVALPROEX 500 MG TABEC PO SCH ×2 (08:46→21:06)
[2018-01-23] MEDS: GABAPENTIN 600 MG, GABAPENTIN 200 MG PO SCH ×6 (08:47→16:47)
[2018-01-23] MEDS: MORPHINE SULFATE 4 MG/ML SYR IVP PRN ×4 (08:49→22:42)
[2018-01-23] MEDS: levETIRAcetam 500 MG TAB PO SCH ×2 (08:51→21:05)
[2018-01-23 12:00] VITALS: BP 123/82
[2018-01-23] MEDS ORDERED: oxyCODONE/APAP 5/325 MG 1 TAB TAB PO PRN ×2 (13:05)
[2018-01-23 16:00] VITALS: BP 148/87
[2018-01-23 19:48] VITALS: BP 130/88
[2018-01-23] MEDS: FAMOTIDINE 20 MG/2 ML VIAL IV SCH (21:07)
[2018-01-23] MEDS: QUEtiapine FUMARATE 100 MG TAB PO SCH (21:07)
[2018-01-24] VITALS: BP 103/51
[2018-01-24 04:00] VITALS: BP 105/60
[2018-01-24] MEDS: PIPER/TAZO 3.375GM/D5W PREMIX 50 ML IV SCH ×2 (05:23→12:42)
[2018-01-24 07:16] LABS: BASOPHILS # (AUTO) 0.1 K/uL (0.00-0.22); BASOPHILS % (AUTO) 0.7 % (0.0-2.0); EOSINOPHILS # (AUTO) 0.2 K/uL (0-0.4); EOSINOPHILS % (AUTO) 2.3 % (0.0-4.0); HEMOGLOBIN 11.6 g/dL (12.0-18.0); LYMPHOCYTES # (AUTO) 3.3 K/uL (2.0-11.5); LYMPHOCYTES % (AUTO) 43.1 % (20.5-51.1); MEAN CORPUSCULAR HEMOGLOBIN 30 pg (27-31); MEAN CORPUSCULAR HGB CONC 33 g/dL (33-37); MEAN CORPUSCULAR VOLUME 91.1 fL (80-94); MONOCYTES # (AUTO) 0.6 K/uL (0.8-1.0); MONOCYTES % (AUTO) 7.8 % (1.7-9.3); NEUTROPHILS # (AUTO) 3.5 K/uL (1.8-7.7); NEUTROPHILS % (AUTO) 46.1 % (42.2-75.2); PLATELET COUNT (AUTO) 319 K/uL (140-450); RED BLOOD CELL COUNT(AUTO) 3.84 MIL/uL (4.20-6.10); RED CELL DISTRIBUTION WIDTH 15.8 % (11.6-13.7); WHITE BLOOD COUNT (AUTO) 7.6 K/uL (4.8-10.8)
[2018-01-24 07:37] LABS: ANION GAP 10.2 (8-16); CARBON DIOXIDE 29.1 mmol/L (21-32); POTASSIUM 4.3 mmol/L (3.5-5.1)
[2018-01-24 08:00] VITALS: BP 135/83
[2018-01-24] MEDS: levETIRAcetam 500 MG TAB PO SCH (08:15)
[2018-01-24] MEDS: DIVALPROEX 500 MG TABEC PO SCH (08:15)
[2018-01-24] MEDS: GABAPENTIN 600 MG, GABAPENTIN 200 MG PO SCH ×6 (08:15→17:18)
[2018-01-24] MEDS: MORPHINE SULFATE 4 MG/ML SYR IVP PRN (08:17)
[2018-01-24] MEDS: DEXT 5% /NACL 0.9% 1,000 ML IV SCH (08:40)
[2018-01-24 12:00] VITALS: BP 133/72
[2018-01-24] MEDS ORDERED: KEP500 PO (13:40)
[2018-01-24] MEDS ORDERED: ACET-9494 PO (13:40)
[2018-01-24 16:00] VITALS: BP 149/85
== END 2018-01-24 17:50 | disposition home or self-care (01) | DRG 342 ==
LOC: MED 15:21 → MTU 19:07
PROVIDERS: ADMIT Preventive Medicine Preventive Medicine/Occupational Environmental Medicine; ATTEND Preventive Medicine Preventive Medicine/Occupational Environmental Medicine
PROC: 0DTJ4ZZ Resection of Appendix, Percutaneous Endoscopic Approach (ICD-10-PCS; principal; 2018-01-22 10:00)
DX: K35.80 Unspecified acute appendicitis (principal); I69.954 Hemiplegia and hemiparesis following unspecified cerebrovascular disease affecting left non-dominant side; I48.91 Unspecified atrial fibrillation; I11.9 Hypertensive heart disease without heart failure; G40.909 Epilepsy, unspecified, not intractable, without status epilepticus; F12.90 Cannabis use, unspecified, uncomplicated; F17.210 Nicotine dependence, cigarettes, uncomplicated; I25.10 Atherosclerotic heart disease of native coronary artery without angina pectoris; K21.9 Gastro-esophageal reflux disease without esophagitis; M79.7 Fibromyalgia; F15.90 Other stimulant use, unspecified, uncomplicated; K57.90 Diverticulosis of intestine, part unspecified, without perforation or abscess without bleeding; Z91.013 Allergy to seafood; Z91.018 Allergy to other foods; Z79.899 Other long term (current) drug therapy; Z87.19 Personal history of other diseases of the digestive system; Z91.041 Radiographic dye allergy status; Z90.49 Acquired absence of other specified parts of digestive tract; Z82.49 Family history of ischemic heart disease and other diseases of the circulatory system; Z79.01 Long term (current) use of anticoagulants; Z87.442 Personal history of urinary calculi; Z98.890 Other specified postprocedural states; Z79.82 Long term (current) use of aspirin
CPT/HCPCS: 36415; 70450; 71045; 80048; 80053; 82150; 82272; 82550; 83605; 83690; 84484; 85025; 85610; 85651; 86140; 87040; 87081; 93005; 96361; 96365; 96375; 96376; 99285; J0330; J1100; J1200; J1885; J2060; J2250; J2270; J2405; J2543; J2704; J2710; J3010; J3490; J7030; J7042; J7060; J7120

== ENCOUNTER 2018-02-21 15:52 | Emergency (ER) | payer OTHER, MEDICAID ==
[~2018-02-21] VITALS: Ht 167.6 cm; Wt 90.7 kg
[~2018-02-21 15:52] MED LIST changes: +ACET-9494 PO
[2018-02-21 16:01] VITALS: BP 151/98
--- NOTE | 2018-02-21 16:08 | NUR ---
PATIENT AMBULATED TO BED 4.
--- NOTE | 2018-02-21 16:13 | NUR ---
52 YO M TO ER WITH C/O ABD PAIN X3WKS S/P appendectomy X3WKS AGO. PT STATES PAIN RADIATES FRON UMBILICUS TO GROIN SHARP 07/17. PT STATES MED HX A-FIB, X2 L SIDE STROKES, FIBROMYALGIA, HTN, APPENDECTOMY. PT STATES CHEST TIGHTNESS, LS CLEAR THROUGHOUT, ABD FIRM BS ACTIVE X4 QUADRENTS PT POSITIONED FOR COMFORT, ERMD MADE AWARE, WILL CONTINUE TO MONITOR
--- NOTE | 2018-02-21 16:13 | NUR ---
Malik vyas in [facility] - 02/21/18 at 1716 by [facility] 52 YO M TO ER WITH C/O ABD PAIN X3WKS S/P appendectomy X3WKS AGO
[2018-02-21] MEDS ORDERED: ONDANSETRON 4 MG/2 ML VIAL IVP ONE (16:35)
[2018-02-21] MEDS ORDERED: NACL 0.9% 1,000 ML IV ONE (16:35)
[2018-02-21] MEDS ORDERED: KETOROLAC 30 MG/ML VIAL IVP ONE (16:35)
[2018-02-21 16:53] LABS: BASOPHILS # (AUTO) 0.1 K/uL (0.00-0.22); BASOPHILS % (AUTO) 1.4 % (0.0-2.0); EOSINOPHILS # (AUTO) 0.5 K/uL (0-0.4); EOSINOPHILS % (AUTO) 6.9 % (0.0-4.0); HEMATOCRIT 38.1 % (36-52); HEMOGLOBIN 12.7 g/dL (12.0-18.0); LYMPHOCYTES % (AUTO) 43.9 % (20.5-51.1); MEAN CORPUSCULAR HEMOGLOBIN 30 pg (27-31); MEAN CORPUSCULAR HGB CONC 33 g/dL (33-37); MEAN CORPUSCULAR VOLUME 89.9 fL (80-94); MONOCYTES # (AUTO) 0.6 K/uL (0.8-1.0); MONOCYTES % (AUTO) 8.5 % (1.7-9.3); NEUTROPHILS # (AUTO) 2.6 K/uL (1.8-7.7); NEUTROPHILS % (AUTO) 39.3 % (42.2-75.2); PLATELET COUNT (AUTO) 346 K/uL (140-450); RED BLOOD CELL COUNT(AUTO) 4.23 MIL/uL (4.20-6.10); RED CELL DISTRIBUTION WIDTH 15.2 % (11.6-13.7); WHITE BLOOD COUNT (AUTO) 6.7 K/uL (4.8-10.8)
--- NOTE | 2018-02-21 16:59 | NUR ---
PT TO CT VIA ZE WITH COORDINATE MEASURING MACHINE OPERATOR
[2018-02-21 17:03] LABS: ANION GAP 11.6 (8-16); CARBON DIOXIDE 28.1 mmol/L (21-32); POTASSIUM 3.7 mmol/L (3.5-5.1)
--- NOTE | 2018-02-21 17:08 | NUR ---
PT RETURNED FROM CT.
[2018-02-21 17:09] LABS: ALBUMIN 2.6 g/dL (3.4-5.0); TOTAL BILIRUBIN 0.1 mg/dL (0.0-1.0)
--- NOTE | 2018-02-21 18:00 | NUR ---
IVF NS STOPPED.
[2018-02-21 18:01] VITALS: BP 139/89
--- NOTE | 2018-02-21 18:02 | NUR ---
Patient discharged with v/s stable. Written and verbal after care instructions given and explained. Patient alert, oriented and verbalized understanding of instructions. Ambulatory with steady gait. All questions addressed prior to discharge. ID band removed. Patient advised to follow up with PMD. Rx of MEDROL DOSE PACK, TRAMADOL given. Patient educated on indication of medication including possible reaction and side effects. Opportunity to ask questions provided and answered.
== END 2018-02-21 18:02 | disposition home or self-care (01) ==
LOC: MED 15:52
DX: K57.90 Diverticulosis of intestine, part unspecified, without perforation or abscess without bleeding (principal); I48.91 Unspecified atrial fibrillation; K21.9 Gastro-esophageal reflux disease without esophagitis; I10 Essential (primary) hypertension; Z86.73 Personal history of transient ischemic attack (TIA), and cerebral infarction without residual deficits; Z90.89 Acquired absence of other organs; Z79.899 Other long term (current) drug therapy; Z79.82 Long term (current) use of aspirin; Z88.8 Allergy status to other drugs, medicaments and biological substances; Z91.013 Allergy to seafood; Z91.018 Allergy to other foods
CPT/HCPCS: 36415; 74176; 80053; 85025; 96361; 96374; 96375; 99285; J1885; J2405; J7030

== ENCOUNTER 2018-03-06 17:14 | Emergency (ER) | payer OTHER, MEDICAID ==
[~2018-03-06] VITALS: Ht 167.6 cm; Wt 90.7 kg
--- NOTE | 2018-03-06 17:16 | NUR ---
PT BIBA ALS TO BED 4
[2018-03-06 17:18] VITALS: BP 157/96
[2018-03-06] MEDS ORDERED: LORazepam 2 MG/ML VIAL IVP ONE (17:55)
[2018-03-06] MEDS ORDERED: KETOROLAC 30 MG/ML VIAL IVP ONE (18:00)
--- NOTE | 2018-03-06 18:00 | NUR ---
52M BIBA WITH C/O WITNESSED SEIZURE, TWO LASTING APPROX 1 MINUTE AND 2 MINUTES APART PER EMT REPORT. PT IS POST ICTAL. PT IS ALERT AND BUT DROWSY. ANSWER QUESTIONS APPRIOPRIATELY. PT IS AOX3. PT REPORTS OF 8/10 NECK, BACK, MIDSTERNAL PAIN. NO ORAL TRAUMA OR URINE/BOWEL INCONTINENCE NOTED. PT ALSO REPORTS OF SOB. NO BRUISING OR DEFORMITY NOTED. RR ARE EVEN AND UNLABORED. VSS. PT PLACED ON SZ PRECAUTIONS AND PULSE OX/CARDIAC/BP MONITORING. AWAITING ER MD HUNT. WILL CONTINUE TO MONITOR.
--- NOTE | 2018-03-06 18:14 | NUR ---
PT HAD TONIC CLONIC SEIZURE LASTING APPROX 30 SECONDS. NOTIFIED ER MD ADDISON. ATIVAN GIVEN PER ER MD ADDISON ORDERED. PLACED ON 3L O2 NC. WILL CONTINUE TO MONITOR. PT REMAINS POST ITCAL.
--- NOTE | 2018-03-06 18:21 | NUR ---
PT TO XRAY VIA ZE ACCOMPANIED BY TRINITY STONER AND RAMP BOSS.
--- NOTE | 2018-03-06 18:21 | NUR ---
pt to xray with cardiac monitoring
--- NOTE | 2018-03-06 18:40 | NUR ---
PT RETURNED FROM XR VIA [facility] WITH TRINITY STONER AND STOCK BLENDER
--- NOTE | 2018-03-06 19:04 | NUR ---
pt to ct via corinne accompanied by remote sensing technician and sarah rn with cardiac monitoring
--- NOTE | 2018-03-06 19:19 | NUR ---
PT RETURNED FROM CT VIA GURNEY ACCOMPANIED BY ELECTRIC BLANKET WIRER AND TRINITY STONER WITHOUT INCIDENT.
--- NOTE | 2018-03-06 19:22 | NUR ---
Pt report given to Maria Luisa STONER. Transfer of care at this time.
--- NOTE | 2018-03-06 20:00 | NUR ---
Patient appears to be resting comfortably in bed. Vital Signs within normal limits. Respirations even and unlabored. No further seizures noted
[2018-03-06 22:34] VITALS: BP 138/84
--- NOTE | 2018-03-06 22:34 | NUR ---
Patient discharged with v/s stable. Written and verbal after care instructions given and explained. Patient verbalized understanding. Ambulatory with steady gait. All questions addressed prior to discharge. Advised to follow up with PMD. IV removed, catheter intact and site benign. Applied folded 4x4 gauze and tape to stop bleeding.
== END 2018-03-06 22:34 | disposition home or self-care (01) ==
LOC: MED 17:14
DX: R56.9 Unspecified convulsions (principal); R10.9 Unspecified abdominal pain; M54.2 Cervicalgia; R07.9 Chest pain, unspecified; R11.0 Nausea; I48.91 Unspecified atrial fibrillation; I10 Essential (primary) hypertension; M79.7 Fibromyalgia; E07.9 Disorder of thyroid, unspecified; Z79.899 Other long term (current) drug therapy; Z91.02 Food additives allergy status; Z91.013 Allergy to seafood; Z91.041 Radiographic dye allergy status; Z90.49 Acquired absence of other specified parts of digestive tract
CPT/HCPCS: 71045; 72040; 72125; 93005; 96374; 96375; 99284; J1885; J2060

== ENCOUNTER 2018-03-14 10:42 | Emergency (ER) | payer OTHER, MEDICAID ==
[~2018-03-14] VITALS: Ht 167.6 cm; Wt 88.5 kg
[2018-03-14 10:49] VITALS: BP 97/63
--- NOTE | 2018-03-14 10:55 | NUR ---
Patient ambulated to bed 3. RN evaluating patient at bedside.
--- NOTE | 2018-03-14 11:02 | NUR ---
is with domenica
[2018-03-14] MEDS ORDERED: ACETAMINOPHEN EXTRA STRENGTH 500 MG TAB PO ONE (11:25)
--- NOTE | 2018-03-14 11:30 | NUR ---
Urinal provided at bedside. Pt made aware UA specimen needed. Pt verbalized understanding.
--- NOTE | 2018-03-14 11:37 | NUR ---
patient came in with generalized weakness since yesterday at 1600. patient complains of numbness to the left arm and leg. ringing in the ears and dizziness. patient walked out of [facility] yesterday. patient has a facial droop on the left side. severe weakness to left arm and leg. pateint has a history of 2 strokes. pateint ambulates with a brown.
[2018-03-14 11:51] LABS: BASOPHILS # (AUTO) 0.1 K/uL (0.00-0.22); BASOPHILS % (AUTO) 0.4 % (0.0-2.0); EOSINOPHILS # (AUTO) 0.2 K/uL (0-0.4); EOSINOPHILS % (AUTO) 1.1 % (0.0-4.0); HEMATOCRIT 36.8 % (36-52); HEMOGLOBIN 12.2 g/dL (12.0-18.0); LYMPHOCYTES # (AUTO) 2.1 K/uL (2.0-11.5); LYMPHOCYTES % (AUTO) 10.4 % (20.5-51.1); MEAN CORPUSCULAR HEMOGLOBIN 30 pg (27-31); MEAN CORPUSCULAR HGB CONC 33 g/dL (33-37); MEAN CORPUSCULAR VOLUME 90.7 fL (80-94); MONOCYTES # (AUTO) 2.1 K/uL (0.8-1.0); MONOCYTES % (AUTO) 10.4 % (1.7-9.3); NEUTROPHILS # (AUTO) 15.7 K/uL (1.8-7.7); NEUTROPHILS % (AUTO) 77.7 % (42.2-75.2); PLATELET COUNT (AUTO) 275 K/uL (140-450); RED BLOOD CELL COUNT(AUTO) 4.06 MIL/uL (4.20-6.10); RED CELL DISTRIBUTION WIDTH 15.8 % (11.6-13.7); WHITE BLOOD COUNT (AUTO) 20.2 K/uL (4.8-10.8)
--- NOTE | 2018-03-14 12:03 | NUR ---
technician [employer] at bedside.
--- NOTE | 2018-03-14 13:09 | NUR ---
IS WITH PATIENT
[2018-03-14 13:18] LABS: ANION GAP 13.5 (8-16); CARBON DIOXIDE 26.7 mmol/L (21-32); CREATININE 1.4 mg/dL (0.7-1.3); POTASSIUM 4.2 mmol/L (3.5-5.1)
[2018-03-14 13:26] LABS: ALBUMIN 2.5 g/dL (3.4-5.0); MAGNESIUM 1.9 mg/dL (1.8-2.4); TOTAL BILIRUBIN 0.4 mg/dL (0.0-1.0)
--- NOTE | 2018-03-14 13:35 | NUR ---
urine has been collected
[2018-03-14 13:44] LABS: APPEARANCE,URINE CLEAR (CLEAR); BILIRUBIN,URINE NEGATIVE (NEGATIVE); BLOOD, URINE NEGATIVE (NEGATIVE); COLOR,URINE YELLOW (YELLOW); LEUKOCYTE ESTERASE ,URINE NEGATIVE (NEGATIVE); NITRITE, URINE NEGATIVE (NEGATIVE); UGLUCOSE NEGATIVE (NEGATIVE)
[2018-03-14 13:51] LABS: BARBITURATE, URINE NEG. ng/ml (NEG <=200); BENZODIAZEPINE, URINE NEG. ng/mL (NEG <=200); CANNABINOID, URINE NEG. ng/mL (NEG <=50); COCAINE, URINE NEG. ng/mL (NEG <=300); OPIATE, URINE NEG. ng/mL (NEG <=2000); PHENCYCLIDINE SCREEN,URINE NEG. ng/mL (NEG <=25)
--- NOTE | 2018-03-14 14:57 | NUR ---
pt blood pressure is 86/59. was notified no new orders recieved
[2018-03-14 16:54] VITALS: BP 95/59
--- NOTE | 2018-03-14 16:55 | NUR ---
Patient discharged with v/s stable. Written and verbal after care instructions given and explained. Patient verbalized understanding. with steady gait. All questions addressed prior to discharge. Advised to follow up with PMD tomorrow.
== END 2018-03-14 16:55 | disposition home or self-care (01) ==
LOC: MED 10:42
DX: F15.10 Other stimulant abuse, uncomplicated (principal); D72.829 Elevated white blood cell count, unspecified; I48.91 Unspecified atrial fibrillation; I10 Essential (primary) hypertension; Z90.49 Acquired absence of other specified parts of digestive tract; Z86.73 Personal history of transient ischemic attack (TIA), and cerebral infarction without residual deficits; Z91.041 Radiographic dye allergy status; Z91.013 Allergy to seafood; Z91.018 Allergy to other foods; Z79.899 Other long term (current) drug therapy
CPT/HCPCS: 36415; 70450; 71045; 80053; 80305; 81003; 83735; 85025; 87040; 93005; 99285; Q0092

== ENCOUNTER 2018-11-19 09:15 | Emergency (ER) | payer OTHER, MEDICAID ==
[~2018-11-19] VITALS: Ht 167.6 cm; Wt 91.6 kg
[~2018-11-19 09:15] MED LIST changes: +ASPI-1718 PO; -ASPI81CT89 PO
--- NOTE | 2018-11-19 09:20 | NUR ---
PT AMBULATES TO BED 3
[2018-11-19 09:28] VITALS: BP 147/87
--- NOTE | 2018-11-19 09:45 | NUR ---
PT. ARRIVED TO THE ED DUE TO LOW BACK PAIN THAT RADIATES TO THE GROIN AREA X 1 MONTH. REPORTS HEMATURIA AND BLOOD IN STOOL X 1 WEEK. PT. STATES " I SAW THE UROLOGIST A WEEK AGO HE TOLD ME I HAD A UTI AND GAVE ME AND ANTIBIOTIC". PT. STATES DIFFICULTY URINATING. 10/10 SHARP PAIN IN LOWER ABD AND GROIN AND UPON URINATION. MED HX: SEIZURES, STROKES (3) MOST RECENT 2 MONTHS AGO, HTN , UTI ALLERGIES : IODINE RX: PER PATIENT CAN ONLY REMEMBER KEYLA
--- NOTE | 2018-11-19 10:15 | NUR ---
DR ADDISON AT BEDSIDE WHEN PATIENT STARTED HAVING SIEZURE. SIEZURE LASTED APPROX. 1 MINUTE. PATIENT ABLE TO COMMUNICATE AFTER SEIZURE AND STATES HE KNEW HE WAS GOING TO HAVE ONE.
[2018-11-19] MEDS ORDERED: NACL 0.9% 1,000 ML IV SCH (10:17)
[2018-11-19] MEDS ORDERED: LORazepam 2 MG/ML VIAL IVP ONE (10:20)
[2018-11-19] MEDS ORDERED: LORazepam 2 MG/ML VIAL ONE (10:26)
--- NOTE | 2018-11-19 10:32 | NUR ---
PATIENT HAVING ANOTHER SEIZURE-LIKE EPISODE. DR ADDISON AT BEDSIDE. PATIENT BODY JERKING, NOT VERBALLY RESPONSIVE BUT FAILED ARM DROP TEST.
--- NOTE | 2018-11-19 10:41 | NUR ---
AKED PATIENT TO PROVIDE URINE SAMPLE, STATES HE COULD NOT AT THIS TIME.
[2018-11-19 10:42] LABS: BASOPHILS # (AUTO) 0.1 K/uL (0.00-0.22); BASOPHILS % (AUTO) 0.8 % (0.0-2.0); EOSINOPHILS # (AUTO) 0.4 K/uL (0-0.4); EOSINOPHILS % (AUTO) 3.9 % (0.0-4.0); HEMATOCRIT 40.9 % (36-52); HEMOGLOBIN 13.3 g/dL (12.0-18.0); LYMPHOCYTES # (AUTO) 2.8 K/uL (2.0-11.5); LYMPHOCYTES % (AUTO) 31.6 % (20.5-51.1); MEAN CORPUSCULAR HEMOGLOBIN 30 pg (27-31); MEAN CORPUSCULAR HGB CONC 33 g/dL (33-37); MEAN CORPUSCULAR VOLUME 92.5 fL (80-94); MONOCYTES # (AUTO) 0.8 K/uL (0.8-1.0); MONOCYTES % (AUTO) 9.2 % (1.7-9.3); NEUTROPHILS # (AUTO) 4.8 K/uL (1.8-7.7); NEUTROPHILS % (AUTO) 54.5 % (42.2-75.2); PLATELET COUNT (AUTO) 387 K/uL (140-450); RED BLOOD CELL COUNT(AUTO) 4.42 MIL/uL (4.20-6.10); WHITE BLOOD COUNT (AUTO) 8.9 K/uL (4.8-10.8)
[2018-11-19 10:44] LABS: ANION GAP 14.3 (8-16); CARBON DIOXIDE 25.8 mmol/L (21-32); CHLORIDE 106 mmol/L (98-107); CREATININE 1.1 mg/dL (0.7-1.3); GFR ARICAN-AMERICAN 89 mL/min (>90); GLUCOSE 76 mg/dL (74-106); POTASSIUM 4.1 mmol/L (3.5-5.1); SODIUM SERUM 142 mmol/L (136-145); UREA NITROGEN, BLOOD 11 mg/dL (7-18)
[2018-11-19 10:51] LABS: ASPARTATE AMINOTRANSFERASE 20 U/L (15-37); TOTAL BILIRUBIN 0.2 mg/dL (0.0-1.0)
[2018-11-19 10:52] LABS: VALPROIC ACID < 3 ug/ml (50-100)
--- NOTE | 2018-11-19 11:15 | NUR ---
PATIENT SLEEPING IN BED. NO NEEDS STATED.
[2018-11-19 13:13] LABS: APPEARANCE,URINE CLEAR (CLEAR); BILIRUBIN,URINE NEGATIVE (NEGATIVE); BLOOD, URINE NEGATIVE (NEGATIVE); COLOR,URINE YELLOW (YELLOW); LEUKOCYTE ESTERASE ,URINE NEGATIVE (NEGATIVE); NITRITE, URINE NEGATIVE (NEGATIVE); UGLUCOSE NEGATIVE (NEGATIVE)
[2018-11-19 14:16] VITALS: BP 139/88
--- NOTE | 2018-11-19 14:18 | NUR ---
Patient discharged with v/s stable. Written and verbal after care instructions given and explained. Patient alert, oriented and verbalized understanding of instructions. Ambulatory with CANE . All questions addressed prior to discharge. ID band removed. Patient advised to follow up with PMD. Rx of NAPROSYN given. Patient educated on indication of medication including possible reaction and side effects. Opportunity to ask questions provided and answered.
== END 2018-11-19 14:18 | disposition home or self-care (01) ==
LOC: MED 09:15
DX: R56.9 Unspecified convulsions (principal); M54.9 Dorsalgia, unspecified; K21.9 Gastro-esophageal reflux disease without esophagitis; I10 Essential (primary) hypertension; F17.200 Nicotine dependence, unspecified, uncomplicated; Z86.73 Personal history of transient ischemic attack (TIA), and cerebral infarction without residual deficits; Z90.49 Acquired absence of other specified parts of digestive tract; Z87.442 Personal history of urinary calculi; Z79.82 Long term (current) use of aspirin; Z79.899 Other long term (current) drug therapy; Z88.8 Allergy status to other drugs, medicaments and biological substances; Z91.018 Allergy to other foods
CPT/HCPCS: 36415; 80053; 81003; 85025; 86886; 86900; 86901; 93005; 96374; 99284; J2060; J7030

== ENCOUNTER 2018-12-09 12:48 | Emergency (ER) | payer OTHER, MEDICAID ==
[~2018-12-09] VITALS: Ht 167.6 cm; Wt 90.3 kg
[~2018-12-09 12:48] MED LIST changes: -SERT100T PO
[2018-12-09 13:31] VITALS: BP 183/115
--- NOTE | 2018-12-09 13:38 | NUR ---
PT TAKEN IN WHEELCHAIR TO ER BED 04
--- NOTE | 2018-12-09 13:49 | NUR ---
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 NORMALLY TAKES BP MEDICATION BUT HASN'T HAD IT IN 6 DAYS. DENIES NAUSEA, INJURY, LOC HX: HTN, STROKE, SEIZURE RX: BLOOD PRESSURE MEDS, WATER PILL, KEPPRA, CARAFATE *DOES NOT KNOW MEDICATION NAMES
[2018-12-09] MEDS ORDERED: cloNIDine 0.1 MG TAB PO ONE (14:40)
--- NOTE | 2018-12-09 15:10 | NUR ---
[employer] INFORMED RN THAT [facility]ATEINT REFUESED LAB DRAW.
[2018-12-09] MEDS ORDERED: LABETALOL 100 MG/20 ML VIAL IVP ONE (15:30)
--- NOTE | 2018-12-09 15:30 | NUR ---
PATIENT REFUESING TO GIVE URINE AT THIS TIME.
[2018-12-09 16:22] VITALS: BP 156/91
--- NOTE | 2018-12-09 16:23 | NUR ---
Patient discharged with v/s stable. Written and verbal after care instructions given and explained. Patient alert, oriented and verbalized understanding of instructions. Ambulatory with steady gait. All questions addressed prior to discharge. ID band removed. Patient advised to follow up with PMD. Rx of CLONIDINE, FIORICET, LISINOPRIL given. Patient educated on indication of medication including possible reaction and side effects. Opportunity to ask questions provided and answered.
== END 2018-12-09 16:48 | disposition home or self-care (01) ==
LOC: MED 12:48
DX: G44.219 Episodic tension-type headache, not intractable (principal); I10 Essential (primary) hypertension; Z91.14 Patient's other noncompliance with medication regimen; F15.10 Other stimulant abuse, uncomplicated; I48.91 Unspecified atrial fibrillation; K21.9 Gastro-esophageal reflux disease without esophagitis; Z86.73 Personal history of transient ischemic attack (TIA), and cerebral infarction without residual deficits; Z79.891 Long term (current) use of opiate analgesic; Z79.82 Long term (current) use of aspirin; Z79.899 Other long term (current) drug therapy; Z91.013 Allergy to seafood; Z91.018 Allergy to other foods; Z88.8 Allergy status to other drugs, medicaments and biological substances
CPT/HCPCS: 70450; 71045; 96374; 99284; J3490

== ENCOUNTER 2018-12-20 17:50 | Emergency (ER) | payer OTHER, MEDICAID ==
[~2018-12-20] VITALS: Ht 170.2 cm; Wt 90.7 kg
[2018-12-20 18:35] VITALS: BP 164/67
[2018-12-20] MEDS ORDERED: LORazepam 2 MG/ML VIAL ONE (18:47)
--- NOTE | 2018-12-20 18:48 | NUR ---
PT WC TO BED #9
--- NOTE | 2018-12-20 18:49 | NUR ---
53Y/M BIB W/C C/O SEIZURE, APPEARS TONIC CLONIC IN TRIAGE. PT STATES HE HAS GROIN , LOWER ABD PAIN AND BACK X 4 DAYS AGO, PT ALSO STATES HE DOESNT SMOKE METH BUT HIS BLOOD WORK WILL SHOW THAT HE DOES. PT IS AAOX4, VSS AT THIS TIME, BED DOWN, BEDRAIL UP X 1, ER MD AWARE AND NOTIFIED OF PT STATUS. PMH: STROKES X3 EPISODES, SZ, KIDNEY STONES
--- NOTE | 2018-12-20 19:08 | NUR ---
RECEIVED REPORT FROM GEORGIANA AMANDA.
--- NOTE | 2018-12-20 19:18 | NUR ---
PT REPORTS 10/10 PAIN TO GROIN, BACK, AND ABDOMEN AND REPORTS HE FEELS LIKE HE IS ABOUT TO HAVE A SEIZURE. PT ANSWERS QUESTIONS APPROPRIATELY AND FOLLOWS COMMANDS. SEIZURE PADS ARE SECURE ON RAILS.
[2018-12-20] MEDS ORDERED: KETOROLAC 30 MG/ML VIAL IM ONE (20:00)
[2018-12-20 20:13] LABS: BASOPHILS # (AUTO) 0.1 K/uL (0.00-0.22); BASOPHILS % (AUTO) 0.8 % (0.0-2.0); EOSINOPHILS # (AUTO) 0.5 K/uL (0-0.4); EOSINOPHILS % (AUTO) 4.3 % (0.0-4.0); HEMATOCRIT 44.4 % (36-52); HEMOGLOBIN 14.6 g/dL (12.0-18.0); LYMPHOCYTES # (AUTO) 4.5 K/uL (2.0-11.5); LYMPHOCYTES % (AUTO) 36.5 % (20.5-51.1); MEAN CORPUSCULAR HEMOGLOBIN 30 pg (27-31); MEAN CORPUSCULAR HGB CONC 33 g/dL (33-37); MEAN CORPUSCULAR VOLUME 91.3 fL (80-94); MONOCYTES # (AUTO) 0.9 K/uL (0.8-1.0); MONOCYTES % (AUTO) 7.2 % (1.7-9.3); NEUTROPHILS # (AUTO) 6.4 K/uL (1.8-7.7); NEUTROPHILS % (AUTO) 51.2 % (42.2-75.2); PLATELET COUNT (AUTO) 562 K/uL (140-450); RED BLOOD CELL COUNT(AUTO) 4.87 MIL/uL (4.20-6.10); RED CELL DISTRIBUTION WIDTH 15.2 % (11.6-13.7); WHITE BLOOD COUNT (AUTO) 12.4 K/uL (4.8-10.8)
--- NOTE | 2018-12-20 20:20 | NUR ---
US AT BEDSIDE
[2018-12-20 20:27] LABS: ALBUMIN 3.5 g/dL (3.4-5.0); ANION GAP 20.4 (8-16); CARBON DIOXIDE 20.2 mmol/L (21-32); CREATININE 1.3 mg/dL (0.7-1.3); POTASSIUM 3.6 mmol/L (3.5-5.1); TOTAL BILIRUBIN 0.1 mg/dL (0.0-1.0)
[2018-12-20] MEDS ORDERED: MORPHINE SULFATE 4 MG/ML SYR IVP ONE ×2 (20:50→21:50)
--- NOTE | 2018-12-20 20:55 | NUR ---
PT ASSISTED TO USE URINAL, UNABLE TO PROVIDE URINE AT THIS TIME. PT REFUSED CATHETER. EDMD AWARE.
--- NOTE | 2018-12-20 23:13 | NUR ---
PT ASSISTED TO USE URINAL, UNABLE TO PROVIDE URINE AT THIS TIME. PT REFUSED CATHETER. EDMD AWARE.
[2018-12-20 23:28] VITALS: BP 154/91
--- NOTE | 2018-12-20 23:28 | NUR ---
Patient discharged with v/s stable. Written and verbal after care instructions given and explained. Patient alert, oriented and verbalized understanding of instructions. Ambulatory with cane. All questions addressed prior to discharge. ID band removed. Patient advised to follow up with PMD. Opportunity to ask questions provided and answered.
== END 2018-12-20 23:28 | disposition home or self-care (01) ==
LOC: MED 17:50
DX: K57.90 Diverticulosis of intestine, part unspecified, without perforation or abscess without bleeding (principal); N20.0 Calculus of kidney; N43.3 Hydrocele, unspecified; R56.9 Unspecified convulsions; I10 Essential (primary) hypertension; Z79.891 Long term (current) use of opiate analgesic; Z79.82 Long term (current) use of aspirin; Z79.899 Other long term (current) drug therapy; Z88.8 Allergy status to other drugs, medicaments and biological substances; Z91.018 Allergy to other foods; Z91.013 Allergy to seafood
CPT/HCPCS: 36415; 74176; 76870; 80053; 83690; 85025; 96372; 96374; 96376; 99284; J1885; J2060; J2270; Q0092

== ENCOUNTER 2019-03-08 17:54 | Emergency (ER) | payer OTHER, MEDICAID ==
[~2019-03-08] VITALS: Ht 165.1 cm; Wt 93.6 kg
[2019-03-08 17:56] VITALS: BP 151/122
[2019-03-08] MEDS ORDERED: ASPIRIN 81 MG TAB.CHEW PO ONE (18:15)
[2019-03-08 18:34] LABS: BASOPHILS # (AUTO) 0.1 K/uL (0.00-0.22); BASOPHILS % (AUTO) 0.9 % (0.0-2.0); EOSINOPHILS # (AUTO) 0.5 K/uL (0-0.4); HEMATOCRIT 42.6 % (36-52); HEMOGLOBIN 14.1 g/dL (12.0-18.0); LYMPHOCYTES # (AUTO) 3.1 K/uL (2.0-11.5); LYMPHOCYTES % (AUTO) 26.8 % (20.5-51.1); MEAN CORPUSCULAR HEMOGLOBIN 30 pg (27-31); MEAN CORPUSCULAR HGB CONC 33 g/dL (33-37); MEAN CORPUSCULAR VOLUME 89.8 fL (80-94); MONOCYTES # (AUTO) 0.9 K/uL (0.8-1.0); NEUTROPHILS # (AUTO) 6.9 K/uL (1.8-7.7); NEUTROPHILS % (AUTO) 60.3 % (42.2-75.2); PLATELET COUNT (AUTO) 471 K/uL (140-450); RED BLOOD CELL COUNT(AUTO) 4.74 MIL/uL (4.20-6.10); RED CELL DISTRIBUTION WIDTH 16.7 % (11.6-13.7); WHITE BLOOD COUNT (AUTO) 11.5 K/uL (4.8-10.8)
--- NOTE | 2019-03-08 18:39 | NUR ---
C/O SOB X1 WEEK. PT REPORTS PRODUCTIVE COUGH WITH THICK YELLOW SPUTUM. RR 36, SHALLOW, BREATH SOUNDS CLEAR THROUGHOUT. PT SMOKES 3-4 CIGARRETES PER DAY. PT REPORTS POUNDING CP THROUGHOUT ENTIRE CHEST THAT RADIATES TO BACK WITH COUGH. MEDHX:CVA, SEIZURE, FIBROMYALGA, HTN PATIENT STATES PAIN OF 8/10 AT THIS TIME;PATIENT POSITIONED FOR COMFORT; HOB ELEVATED; BEDRAILS UP X2; BED DOWN. ER MD MADE AWARE OF PT STATUS.
[2019-03-08 18:42] LABS: ANION GAP 15.2 (8-16); CARBON DIOXIDE 24.6 mmol/L (21-32); CREATININE 1.6 mg/dL (0.7-1.3); POTASSIUM 3.8 mmol/L (3.5-5.1)
[2019-03-08 18:45] LABS: PROTHROMBIN TIME 9.3 secs (10.8-13.4)
[2019-03-08 18:48] LABS: ALBUMIN 3.5 g/dL (3.4-5.0); TOTAL BILIRUBIN 0.2 mg/dL (0.0-1.0)
--- NOTE | 2019-03-08 19:17 | NUR ---
Pt report given to MANAV STONER. Transfer of care at this time.
--- NOTE | 2019-03-08 19:35 | NUR ---
PT AWAKE SITTING UP IN BED. AAOX4, WITH C/O GENERALIZED PAIN TO BACK, CHEST. ABDOMEN ASSOCIATED WITH A COUGH. PT STATES HE FEELS ACHINESS 9/10 PAIN. PT STATED HE IS SEEING A NEW DOCTOR FOR HIS FIBROMYALGIA AND RAN OUT OF MEDICATION. PT UNABLE TO TELL ME THE NAME OF HIS MEDICATION FOR PAIN. VITAL SIGNS: NSR 95, RR 18 99% SPO2, BP 160/81. DENIES FEVER CHILLS @ THIS TIME. DENIES N/V/D. BED LOCKED IN LOWEST POSITION, SIDE RAILS UP X 2. NO ACUTE DISTRESS NOTED.
[2019-03-08] MEDS ORDERED: KETOROLAC 60 MG/2 ML VIAL IM ONE (19:50)
[2019-03-08] MEDS ORDERED: MORPHINE SULFATE 4 MG/ML SYR IM ONE ×2 (20:55→22:50)
--- NOTE | 2019-03-08 22:45 | NUR ---
UPON DISCHARGING PATIENT, PT REPORTS PAIN IS COMING BACK. PT REQUESTING FOR MORE PAIN MEDICATION. DR. MCNEIL MADE AWARE.
[2019-03-08 23:07] VITALS: BP 107/67
== END 2019-03-08 23:05 | disposition home or self-care (01) ==
LOC: MED 17:54
DX: R05 Cough (principal); R07.89 Other chest pain; I10 Essential (primary) hypertension; F17.200 Nicotine dependence, unspecified, uncomplicated; Z90.49 Acquired absence of other specified parts of digestive tract; Z86.73 Personal history of transient ischemic attack (TIA), and cerebral infarction without residual deficits; Z79.82 Long term (current) use of aspirin; Z79.899 Other long term (current) drug therapy; Z88.8 Allergy status to other drugs, medicaments and biological substances; Z91.018 Allergy to other foods
CPT/HCPCS: 36415; 71045; 80053; 84484; 85025; 85610; 85730; 93005; 96372; 99284; J1885; J2270; Q0092